=== PATIENT | female | born 1940 | race Caucasian/White ===

== ENCOUNTER → 2017-09-24 | Outpatient (CLI) | payer MEDICARE, OTHER ==
--- NOTE | 2017-09-24 15:06 | Diagnostic Imaging Report ---
INDICATION: Right knee swelling for 3-4 weeks. TIME OF EXAMINATION: 2:56 PM. FINDINGS: Three views of the right knee demonstrate tricompartmental degenerative change, greatest involving the patellofemoral compartment with significant joint space narrowing and marginal spurring. Milder medial and lateral degenerative changes are seen. There is spurring of the tibial spines. No fracture, dislocation, or effusion is seen. IMPRESSION: Degenerative changes. No acute bony abnormality is detected. Dictated by: Dictated on workstation # [id number]
== END ==
LOC: RAD 14:25
DX: M17.11 Unilateral primary osteoarthritis, right knee (principal)
CPT/HCPCS: 73562

== ENCOUNTER → 2017-09-28 | Outpatient (CLI) | payer MEDICARE, OTHER ==
--- NOTE | 2017-09-28 11:32 | Diagnostic Imaging Report ---
PROCEDURE: MRI right joint lower extremity without contrast. INDICATION: History of an old right knee injury with knee pain. 3-4 week history of right knee swelling. TECHNIQUE: Multiplanar and multisequence noncontrast MR imaging was performed of the right knee. COMPARISON: Radiographs of 09/24/2017. FINDINGS: The anterior cruciate ligament is changed from prior MRI study and appears markedly distorted. While there may be a few intact fibers, it appears to be generally torn. Posterior cruciate ligament appears to be intact. Rather significant joint space narrowing of both the medial and lateral compartment. There are significant areas of irregular thinning and distortion of the articular cartilage. Small areas of subcortical cystic formation are noted most pronounced involving the lateral tibial plateau. Altered appearance about the menisci compatible with myxoid degenerative changes. There is what appears to be more focal area of blunting and truncation about the posterior horn lateral meniscus with slightly complex tear. Signal abnormality also extends to the inferior surface. The medial meniscus also demonstrates distortion with abnormal tear of the posterior horn and body as well as some truncation of the posterior horn compatible with a complex meniscal tear. Patellofemoral compartment is significantly narrowed. There is asymmetric, rather prominent irregular areas of bony protuberance of the distal anterior femur accentuating areas of narrowing. Significant spur formation superior and inferior pole of patella. Moderately advanced chondromalacia of the patella present. The quadriceps and patellar tendon intact. Medial and lateral collateral ligament complex is intact. There is presence of a joint effusion. IMPRESSION: 1. Findings compatible with likely complete or nearly complete tear of the anterior cruciate ligament, changed from prior MRI. 2. Advanced multicompartment degenerative changes involving both knees. This includes joint space narrowing and thinning and distortion of the articular cartilage. Subcortical cystic formation. Prominent irregular areas of osteophyte formation accentuate narrowing particularly at the patellofemoral compartment. 3. 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 Additionally, there appears to be somewhat complex tears involving the posterior horn and body of both the medial, and to a lesser degree, lateral menisci. Dictated by: Dictated on workstation # [id number]
== END ==
LOC: RAD 09:25
DX: M17.0 Bilateral primary osteoarthritis of knee (principal); Z87.828 Personal history of other (healed) physical injury and trauma
CPT/HCPCS: 73721

== ENCOUNTER 2018-08-24 11:45 | Outpatient (CLI) | payer MEDICARE, OTHER ==
[~2018-08-24] VITALS: Ht 170.2 cm; Wt 70.3 kg
[2018-08-24] MEDS ORDERED: ESTR1TAB24 PO (11:56)
[2018-08-24] MEDS ORDERED: ICOS1CAP PO (11:56)
[2018-08-24] MEDS ORDERED: LISI10TA2 PO (11:56)
== END 2018-08-24 11:57 | disposition home or self-care (01) ==
LOC: PREOP 11:45
PROVIDERS: ATTEND Surgery
DX: Z01.818 Encounter for other preprocedural examination (principal)

== ENCOUNTER 2018-08-29 07:51 | Day surgery (SDC) | payer MEDICARE, OTHER ==
[~2018-08-29] VITALS: Ht 170.2 cm; Wt 70.3 kg
[~2018-08-29 07:51] MED LIST: ESTR1TAB24 PO; ICOS1CAP PO; LISI10TA2 PO
[2018-08-29 07:55] VITALS: BP 166/76
[2018-08-29] MEDS ORDERED: fentaNYL INJECTION 100 MCG/2 ML AMP IVP ONE ×2 (08:00→08:45)
[2018-08-29] MEDS ORDERED: LIDOCAINE JELLY 2% 6 ML SYRINGE MM PRN ×2 (08:00→08:45)
[2018-08-29] MEDS ORDERED: MIDAZOLAM 2 MG/2 ML (VERSED) VIAL IVP ONE ×2 (08:00→08:45)
[2018-08-29] MEDS ORDERED: NS IV 500 ML 500 ML IV PRN ×2 (08:00→08:41)
[2018-08-29] MEDS ORDERED: NS IV 500 ML 500 ML ONE (08:04)
[2018-08-29] MEDS ORDERED: MIDAZOLAM 2 MG/2 ML (VERSED) VIAL ONE ×3 (09:23)
[2018-08-29] MEDS ORDERED: fentaNYL INJECTION 100 MCG/2 ML AMP ONE ×2 (09:23→09:34)
--- NOTE | 2018-08-29 09:25 | Conscious Sedation/ASA ---
Conscious Sedation Pre-Proced Time 09:25 ASA Score 2 For ASA 3 and 4: Consider anesthesia and medical clearance. Also, for patients with a history of failed moderate sedation consider anesthesia. Airway Lungs Heart ASA score ASA 1: a normal healthy patient ASA 2: a patient with a mild systemic disease (mid diabetes, controlled hypertension, obesity ASA 3: a patient with a severe systemic disease that limits activity (angina , COPD, prior Myocardial infarction) ASA 4: a patient with an incapacitating disease that is a constant threat to life (CHF, renal failure) ASA 5: a moribund patient not expected to survive 24 hrs. (ruptured aneurysm) ASA 6: a declared brain- patient whose organs are being harvested. For emergent operations, add the letter E after the classification Mallampati Classification Grade 2 Sedation Plan Discussed options with patient/fam The patient is an appropriate candidate to undergo the planned procedure, sedation, and anesthesia. The patient immediately re-assessed prior to indication. CASSIE CEDILLO MD Aug 29, 2018 09:25
--- NOTE | 2018-08-29 09:25 | History & Physicial ---
History of Present Illness History of Present Illness Reason for visit/HPI to undergo screening colonoscopy. She reports a family history of colon cancer in her mother. Date of Admission 08/29/18 Date Seen by a Provider: Aug 29, 2018 Time Seen by a Provider: 09:24 I consulted on this patient on 08/29/18 09:23 Attending Physician Cassie Schulte MD Admitting Physician Moisés Luis MD Consult Allergies and Home Medications Allergies Coded Allergies: No Known Drug Allergies (Unverified , 08/24/18) Home Medications Estradiol 1 Mg Tablet, 1 MG PO DAILY, (Reported) Icosapent Ethyl 1 Gm Capsule, 2 GM PO BID, (Reported) take 2 (1GM) tabs Lisinopril 10 Mg Tablet, 10 MG PO DAILY, (Reported) Patient Home Medication List Home Medication List Reviewed: Yes Past Yevpqpj-Qjnrky-Eqxxxn Hx Patient Social History Marrital Status: Employed/Student: self-employed Alcohol Use: Denies Use Recreational Drug Use: No Smoking Status: Former Smoker Former Smoker, Quit: Aug 25, 1975 2nd Hand Smoke Exposure: No Recent Foreign Travel: No Contact w/other who traveled: No Recent Hopitalizations: No Recent Infectious Disease Expo: No Immunizations Up To Date Tetanus Booster (TDap): Unknown Pediatric: No Date of Pneumonia Vaccine: Mar 14, 2018 Date of Influenza Vaccine: Mar 14, 2018 Seasonal Allergies Seasonal Allergies: No Surgeries Yes Hysterectomy Respiratory No Cardiovascular Yes Hypertension Neurological No Genitourinary No Gastrointestinal No Musculoskeletal Yes Arthritis Endocrine History of Endocrine Disorders: No HEENT History of HEENT Disorders: Yes HEENT Disorders: Cataract Cancer Yes Skin Type of Treatment: Surgical Intervention Psychosocial History of Psychiatric Problem: No Integumentary History of Skin or Integumenta: No Blood Transfusions History of Blood Disorders: No Family Medical History Family Hx: Colon cancer Polyps in the colon Review of Systems Constitutional: no symptoms reported EENTM: no symptoms reported Respiratory: no symptoms reported Cardiovascular: no symptoms reported Gastrointestinal: no symptoms reported Genitourinary: no symptoms reported Skin: no symptoms reported Psychiatric/Neurological: No Symptoms Reported Physical Exam Vital Signs Vital Signs - First Documented 08/29/18 07:55 Temp 98.4 Pulse 65 Resp 18 B/P (MAP) 166/76 (106) Pulse Ox 98 O2 Delivery Room Air Capillary Refill : Height, Weight, BMI Height: 5'7.00" Weight: 155lbs. 0.0oz. [id number]; 24.3 BMI Method: General Appearance: No Apparent Distress Respiratory: Lungs Clear Cardiovascular: Regular Rate, Rhythm Gastrointestinal: Non Tender, Soft Rectal: Deferred Neurologic/Psychiatric: Alert, Oriented x3 Skin: Warm/Dry Assessment/Plan Assessment and Plan lady with a family history of colon cancer. For screening colonoscopy. Admission Diagnosis Admission Status: Other (Outpt Proc) CASSIE SCHULTE MD Aug 29, 2018 09:25
--- NOTE | 2018-08-29 09:47 | Endo Procedure Record ---
Endo Procedure Report Date of Procedure Last Colonoscopy: Yes (12 YEARS AGO) Aug 29, 2018 Surgeon (s) CASSIE CEDILLO MD Post Procedure/Op Diagnosis very few sigmoid diverticulae Procedure Performed colonoscopy to cecum Description of Procedure Anesthesia Type: Conscious Sedation Specimen(s) collected/removed none Description of the Procedure Indication for the procedure: This lady, with a family history of colon cancer involving her mother, came in for screening colonoscopy. She reported a normal colonoscopy about 12 years ago. Informed consent was obtained after reviewing the procedure in detail. Description of the procedure: She was placed in left lateral decubitus position and her vital signs were monitored. Conscious sedation was achieved using Versed and fentanyl. Examination of the perianal area revealed small external hemorrhoid and an associated skin tag. Digital examination was otherwise unremarkable. The colonoscope was then introduced in the rectum and advanced all the way up to the cecum. It was then withdrawn slowly and the mucosa examined in a systematic fashion. Findings: Sigmoid diverticulosis. She tolerated the procedure well and was taken back to the nursing area in a stable condition. Impression: Screening colonoscopy. Positive family history. No polyps. Recommend repeating in 5 years. Copy Copies To 1: REGI PALACIOS MD, XAVIER M MD Aug 29, 2018 09:47
--- NOTE | 2018-08-29 09:50 | Discharge Inst-Simple/Standard ---
Discharge Inst-Standard Discharge Medications New, Converted or Re-Newed RX: Other Patient Instructions/Follow Up Plan of Care/Instructions/FU: repeat colonoscopy in 5 years Activity as Tolerated: Yes Discharge Diet: No Restrictions CASSIE CEDILLO MD Aug 29, 2018 09:50
[2018-08-29 10:05] VITALS: BP 145/69
[2018-08-29 10:35] VITALS: BP 124/62
== END 2018-08-29 10:55 | disposition home or self-care (01) ==
LOC: ENDO 07:51
PROVIDERS: ATTEND Surgery
DX: Z12.11 Encounter for screening for malignant neoplasm of colon (principal); K57.30 Diverticulosis of large intestine without perforation or abscess without bleeding; Z80.0 Family history of malignant neoplasm of digestive organs; K64.4 Residual hemorrhoidal skin tags; I10 Essential (primary) hypertension; M19.91 Primary osteoarthritis, unspecified site; Z87.891 Personal history of nicotine dependence; Z85.828 Personal history of other malignant neoplasm of skin; Z79.899 Other long term (current) drug therapy

== ENCOUNTER 2021-02-11 19:19 | Emergency (ER) | payer MEDICARE, OTHER ==
[~2021-02-11] VITALS: Ht 170 cm; Wt 68.9 kg
[~2021-02-11 19:19] MED LIST changes: -LISI10TA2 PO; +LISI10TA25 PO
[2021-02-11 19:32] VITALS: BP 179/74
--- NOTE | 2021-02-11 20:08 | ED Lower Extremity ---
General Chief Complaint: Lower Extremity Stated Complaint: FEVER/CHILLS/R KNEE PAIN Nursing Triage Note: PT PRESENTS TO THE ED C/O WORSENING R KNEE PAIN WITH INCREASINGLY LIMITED EXTENSION. PT REPORTS RUNNING A MILD FEVER AT HOME OF 99.1, PT USED ADVIL AT HOME. IS AFEBRILE UPON PRESENTATION TO THE ED, NEGATIVE FOR COVID SCREEINING. KNEE IS HOT TO THE TOUCHAND SWOLLEN, NO REDNESS Source: patient Exam Limitations: no limitations (CAMRYN WALDROP APRN) History of Present Illness Date Seen by Provider: Feb 11, 2021 Time Seen by Provider: 19:49 Initial Comments This is a well-appearing 80-year-old female who presents to the ER with complaints of right knee pain and decreased range of motion. States that approximately 18 months ago she had a fall and was told she had a ligament tear. She was scheduled to have surgery with Dr. Bettencourt however with Covid her surgery was delayed and she has yet to reschedule. States that her knee is constantly swollen, however tonight she is unable to bend her knee. 2 days ago she received a steroid injection at Dr. Palacios's office. States that the steroid injections has been helping with the pain until she is able to reschedule her appointment. States that she had a 99.1 temperature at home. No chills, nausea, vomiting, abdominal pain. No erythema to the right knee. (CAMRYN WALDROP MIXED [employer]IM[employer] VETERINARIAN) Allergies and Home Medications Allergies Coded Allergies: No Known Drug Allergies (Unverified , 08/24/18) Home Medications Estradiol 1 Mg Tablet, 1 MG PO DAILY, (Reported) Icosapent Ethyl 1 Gm Capsule, 2 GM PO BID, (Reported) take 2 (1GM) tabs Lisinopril 10 Mg Tablet, 10 MG PO DAILY, (Reported) Patient Home Medication List Home Medication List Reviewed: Yes (CAMRYN WALDROP APRN) Review of Systems Constitutional: see HPI EENTM: no symptoms reported Respiratory: no symptoms reported Cardiovascular: no symptoms reported Gastrointestinal: no symptoms reported Genitourinary: no symptoms reported Musculoskeletal: see HPI Skin: no symptoms reported Psychiatric/Neurological: No Symptoms Reported (CAMRYN WALDROP APRN) Past Oofutlh-Gnisiz-Afrnyd Hx Patient Social History Tobacco Use?: No Substance use?: No (CAMRYN WALDROP APRN) Immunizations Up To Date Tetanus Booster (TDap): Unknown PED Vaccines UTD: No Influenza Vaccine Up-to-Date: Yes; Up-to-Date (CAMRYN WALDROP APRN) Seasonal Allergies Seasonal Allergies: No (CAMRYN WALDROP APRN) Past Medical History Surgery/Hospitalization HX: HTN HX. MRI OF R KNEE REVEALED TORN LIGAMENTS IN 2019-HAS NOT HAD SURG OF 02/11/21 Surgeries: Yes Hysterectomy Respiratory: No Cardiac: Yes Hypertension Neurological: No Genitourinary: No Gastrointestinal: No Musculoskeletal: Yes Arthritis Endocrine: No HEENT: Yes Cataract Cancer: Yes Skin What Type of Treatment Did You: Surgical Intervention Psychosocial: No Integumentary: No Blood Disorders: No (CAMRYN WALDROP APRN) Family Medical History Colon cancer Polyps in the colon Physical Exam Vital Signs Vital Signs - First Documented 02/11/21 19:32 Temp 36.9 Pulse 72 Resp 18 B/P (MAP) 179/74 (109) Pulse Ox 98 O2 Delivery Room Air (KYARA WELLS MD) Vital Signs Capillary Refill : Less Than 3 Seconds (CAMRYN WALDROP APRN) Height, Weight, BMI Height: 5'7.00" Weight: 155lbs. 0.0oz. [id number]; 23.00 BMI Method: General Appearance: WD/WN, no apparent distress HEENT: PERRL/EOMI, normal ENT inspection Neck: full range of motion, normal inspection Cardiovascular: normal peripheral pulses, regular rate, rhythm, no edema, no gallop, systolic murmur Respiratory: lungs clear, normal breath sounds, no respiratory distress, no accessory muscle use Gastrointestinal: normal bowel sounds, non tender, soft Back: normal inspection, no vertebral tenderness Hips: bilateral hip non-tender, bilateral hip normal inspection, bilateral hip normal range of motion, bilateral hip no evidence of injury Legs: bilateral leg non-tender, bilateral leg normal inspection, bilateral leg normal range of motion, bilateral leg no evidence of injury Knees: left knee non-tender, left knee normal inspection, left knee normal range of motion; right knee joint effusion, right knee swelling, right knee other (Limited ROM with flexion. ) Ankles: bilateral ankle non-tender, bilateral ankle normal inspection, bilateral ankle normal range of motion, bilateral ankle no evidence of injury Neurologic/Tendon: normal sensation, normal motor functions, normal tendon functions Neurologic/Psychiatric: no motor/sensory deficits, alert, normal mood/affect, oriented x 3 Skin: normal color, warm/dry (CAMRYN WALDROP APRN) Progress/Results/Core Measures Results/Orders Lab Results Laboratory Tests Test 02/11/21 20:12 Range/Units White Blood Count 8.8 4.3-11.0 10^3/uL Red Blood Count 4.80 3.80-5.11 10^6/uL Hemoglobin 13.3 11.5-16.0 g/dL Hematocrit 42 35-52 % Mean Corpuscular Volume 88 80-99 fL Mean Corpuscular Hemoglobin 28 25-34 pg Mean Corpuscular Hemoglobin Concent 31 L 32-36 g/dL Red Cell Distribution Width 15.4 H 10.0-14.5 % Platelet Count 247 130-400 10^3/uL Mean Platelet Volume 10.8 9.0-12.2 fL Immature Granulocyte % (Auto) 0 % Neutrophils (%) (Auto) 75 42-75 % Lymphocytes (%) (Auto) 15 12-44 % Monocytes (%) (Auto) 8 0-12 % Eosinophils (%) (Auto) 2 0-10 % Basophils (%) (Auto) 1 0-10 % Neutrophils # (Auto) 6.6 1.8-7.8 10^3/uL Lymphocytes # (Auto) 1.3 1.0-4.0 10^3/uL Monocytes # (Auto) 0.7 0.0-1.0 10^3/uL Eosinophils # (Auto) 0.2 0.0-0.3 10^3/uL Basophils # (Auto) 0.0 0.0-0.1 10^3/uL Immature Granulocyte # (Auto) 0.0 0.0-0.1 10^3/uL Sodium Level 138 135-145 MMOL/L Potassium Level 4.7 3.6-5.0 MMOL/L Chloride Level 106 98-107 MMOL/L Carbon Dioxide Level 21 21-32 MMOL/L Anion Gap 11 5-14 MMOL/L Blood Urea Nitrogen 17 7-18 MG/DL Creatinine 1.26 0.60-1.30 MG/DL Estimat Glomerular Filtration Rate 41 BUN/Creatinine Ratio 13 Glucose Level 112 H 70-105 MG/DL Calcium Level 9.6 8.5-10.1 MG/DL Corrected Calcium 9.9 8.5-10.1 MG/DL Total Bilirubin 0.6 0.1-1.0 MG/DL Aspartate Amino Transf (AST/SGOT) 27 5-34 U/L Alanine Aminotransferase (ALT/SGPT) 27 0-55 U/L Alkaline Phosphatase 74 40-136 U/L C-Reactive Protein High Sensitivity 6.34 H 0.00-0.50 MG/DL Total Protein 7.1 6.4-8.2 GM/DL Albumin 3.6 3.2-4.5 GM/DL (KYARA WELLS MD) Vital Signs/I&O 02/11/21 19:32 Temp 36.9 Pulse 72 Resp 18 B/P (MAP) 179/74 (109) Pulse Ox 98 O2 Delivery Room Air (KYARA WELLS MD) Blood Pressure Mean: 109 Progress Progress Note : Progress Note Patient examined and in no acute distress. States that she currently has no pain at rest. Chief concern is limited flexion which started occurring this morning. Will obtain x-rays, basic labs, ESR, CRP. Labs reviewed. No elevation in WBC. X-ray neg. Discussed with Dr. Crooks about draining fluid from knee. He reviewed risks/benefits. Patient declined. Reviewed discharge POC and she is agreeable with plan. (CAMRYN WALDROP APRN) Progress Note : Time: 20:53 Progress Note I have examined the Desiree's knee along with camryn Waldrop. She does have an effusion of the right knee. The knee is not erythematous, warm, or diffusely tender to suggest infection. We discussed the risks and benefits of attempting arthrocentesis therapeutically. After discussing risks and benefits, patient elects to attempt more conservative measures and follow-up in the outpatient setting. (KYARA WELLS MD) Diagnostic Imaging Diagonstic Imaging: Xray Plain Films/CT/US/NM/MRI: other (knee) Comments [facility] [place], [place] NAME: DESIREE GEIGER [facility] REC#: [id number] PT STATUS: REG ER : 1940 PHYSICIAN: CAMRYN WALDROP APRN ADMIT DATE: 02/11/21/ER Draft Date of Exam:02/11/21 KNEE, RIGHT, 3 VIEWS INDICATION: Knee pain and swelling COMPARISON: 09/24/2017 TECHNIQUE: 3 radiographs of the right knee dated 02/11/2021 FINDINGS: No acute fracture or dislocation. No destructive osseous process. Mild medial and lateral joint space narrowing. Mild tricompartmental osteophytosis, greatest involving the patellofemoral joint. No significant joint effusion. No suspicious radiopaque foreign body. IMPRESSION: No acute osseous abnormality with mild to moderate degenerative changes present. Dictated on workstation # [id number] Dict: 02/11/212043 Trans: 02/11/212046 [facility] [phone] Interpreted by: MUSA MAK MD Electronically signed by: Reviewed: Reviewed by Me (CAMRYN WALDROP APRN) Departure Impression Primary Impression: Knee pain Disposition: HOME, SELF-CARE Condition: Improved Departure-Patient Inst. Decision time for Depature: 20:57 (CAMRYN WALDROP APRN) Decision time for Depature: 20:54 (KYARA WELLS MD) Referrals: REGI PALACIOS MD (PCP/Family) Primary Care Physician Patient Instructions: Knee Pain ED Add. Discharge Instructions: 1. Follow up with Dr. Bettencourt for persistent symptoms. Please call office to schedule follow up appointment. 2. Use ice 20 minutes at a time as needed for pain/swelling. 3. May use romeo wrap for swelling and pain. 4. May take Tylenol or Ibuprofen as needed for pain per package. Do not take more than directed. 5. Return to ER for any new, concerning, or worsening symptoms. All discharge instructions reviewed with patient and/or family. Voiced understanding. Copy Copies To 1: ARLINE HOFFMAN MD, STORMY D APRN Feb 11, 2021 20:08 KYARA WELLS MD Feb 11, 2021 20:54
[2021-02-11 20:28] LABS: BASOPHILS % (AUTO) 1 % (0-10); EOSINOPHILS # (AUTO) 0.2 10^3/uL (0.0-0.3); EOSINOPHILS % (AUTO) 2 % (0-10); HEMATOCRIT 42 % (35-52); HEMOGLOBIN 13.3 g/dL (11.5-16.0); LYMPHOCYTES # (AUTO) 1.3 10^3/uL (1.0-4.0); LYMPHOCYTES % (AUTO) 15 % (12-44); MEAN CORPUSCULAR HEMOGLOBIN 28 pg (25-34); MEAN CORPUSCULAR HGB CONC 31 g/dL (32-36); MEAN CORPUSCULAR VOLUME 88 fL (80-99); MEAN PLATELET VOLUME 10.8 fL (9.0-12.2); MONOCYTES # (AUTO) 0.7 10^3/uL (0.0-1.0); MONOCYTES % (AUTO) 8 % (0-12); NEUTROPHILS # (AUTO) 6.6 10^3/uL (1.8-7.8); NEUTROPHILS % (AUTO) 75 % (42-75); PLATELET COUNT 247 10^3/uL (130-400); WHITE BLOOD COUNT 8.8 10^3/uL (4.3-11.0)
[2021-02-11 20:40] LABS: ALBUMIN 3.6 GM/DL (3.2-4.5); BILIRUBIN,TOTAL 0.6 MG/DL (0.1-1.0); CALCIUM 9.6 MG/DL (8.5-10.1); CREATININE SERUM 1.26 MG/DL (0.60-1.30); POTASSIUM 4.7 MMOL/L (3.6-5.0); TOTAL PROTEIN 7.1 GM/DL (6.4-8.2)
--- NOTE | 2021-02-11 20:47 | Diagnostic Imaging Report ---
INDICATION: Knee pain and swelling COMPARISON: 09/24/2017 TECHNIQUE: 3 radiographs of the right knee dated 02/11/2021 FINDINGS: No acute fracture or dislocation. No destructive osseous process. Mild medial and lateral joint space narrowing. Mild tricompartmental osteophytosis, greatest involving the patellofemoral joint. No significant joint effusion. No suspicious radiopaque foreign body. IMPRESSION: No acute osseous abnormality with mild to moderate degenerative changes present. Dictated by: Dictated on workstation # [id number]
[2021-02-11 21:02] LABS: ERYTHROCYTE SEDIMENTATION RATE 17 MM/HR (0-30)
== END 2021-02-11 21:03 | disposition home or self-care (01) ==
LOC: EDUNIT# 19:19 → ER 19:21
DX: M25.561 Pain in right knee (principal); I10 Essential (primary) hypertension; Z79.899 Other long term (current) drug therapy
CPT/HCPCS: 36415; 73562; 80053; 85025; 85652; 86141

== ENCOUNTER → 2021-02-25 | Outpatient (CLI) | payer MEDICARE, OTHER ==
--- NOTE | 2021-02-25 11:30 | Diagnostic Imaging Report ---
INDICATION: 80-year-old postmenopausal female. COMPARISON: None. FINDINGS: AP Spine L1-L4: [BMD (g/cm2): 1.111] [T-Score: -0.7] [Z-Score: 1.0] [BMD Previous: NA] [BMD % Change: NA] LT Hip Neck: [BMD (g/cm2): 0.970] [T-Score: -0.5] [Z-Score: 1.6] LT Hip Total: [BMD (g/cm2):1.027] [T-Score:0.2] [Z-Score: 2.1] [BMD Previous: NA] [BMD % Change: NA] RT Hip Neck: [BMD (g/cm2):0.944] [T-Score:-0.7] [Z-Score:1.4] RT Hip Total: [BMD (g/cm2):1.025] [T-score:0.1] [Z-Score:2.0] [BMD Previous:NA] [BMD % Change:NA] World Health Organization criteria for BMD interpretation classify patients as Normal (T-score at or above -1.0), Osteopenic (T-score between -1.0 and -2.5) or Osteoporotic (T-score at or below -2.5). LIMITATIONS AND MODIFICATION: None. IMPRESSION: 1. Normal bone mineral density. 2. Baseline examination. 3. See below National Osteoporosis Foundation guidelines on when to potentially initiate pharmacologic therapy. Based on the National Osteoporosis Foundation Guidelines, pharmacologic treatment should be initiated in any of the following, unless clinical conditions suggest otherwise: * Any patient with prior fragility fracture of the hip or vertebrae. A spine fracture indicates 5X risk for subsequent spine fracture and 2X risk for subsequent hip fracture. * Osteoporosis (T-score <-2.5). * Postmenopausal women and men age 50 and older with low bone mass/osteopenia (T-score between -1.0 and -2.5) by DXA and 10-year major osteoporotic fracture greater than 20% or a 10-year probability of hip fracture greater than 3%. These fracture risks are supplied above in the FRAX score, if applicable. * Clinician judgement and/or patient preferences may indicate treatment for people with 10-year fracture probabilities above or below these levels. Dictated by: Dictated on workstation # [id number]
--- NOTE | 2021-02-25 12:30 | Diagnostic Imaging Report ---
INDICATION: Routine screening. COMPARISON: No prior mammograms are available for comparison. TECHNIQUE: 2D and 3D bilateral screening mammography was performed with CAD. FINDINGS: Scattered fibroglandular densities are identified bilaterally. No mass or malignant-appearing microcalcifications are seen. The axillae are unremarkable. IMPRESSION: No mammographic features suspicious for malignancy are identified. ACR BI-RADS Category 1: Negative. Result letter will be mailed to the patient. Note: At least 10% of breast cancer is not imaged by mammography. Dictated by: Dictated on workstation # [id number]
== END ==
LOC: RAD 10:00
PROVIDERS: ATTEND Family Medicine
DX: Z12.31 Encounter for screening mammogram for malignant neoplasm of breast (principal); Z13.820 Encounter for screening for osteoporosis; Z78.0 Asymptomatic menopausal state; R01.1 Cardiac murmur, unspecified; I08.3 Combined rheumatic disorders of mitral, aortic and tricuspid valves
CPT/HCPCS: 77063; 77067; 77080; 93306

== ENCOUNTER → 2021-08-27 | Outpatient (CLI) | payer MEDICARE, OTHER ==
--- NOTE | 2021-08-27 18:31 | Diagnostic Imaging Report ---
EXAMINATION: Right lower extremity MRI, 08/27/2021. TECHNIQUE: Multiplanar, multisequence [id number]-syyydaua MRI of the right lower extremity was accomplished. INDICATION: Osteoarthritis. Knee pain and swelling. FINDINGS: The extensor mechanism is intact. The PCL is intact. The ACL is somewhat ill defined perhaps due to a prior partial tear. No discontinuity or acute abnormality is appreciated. The anterior horn and body of the lateral meniscus are diffusely heterogeneous consistent with a multidirectional degenerative-type tear. Horizontal signal extends into the posterior horn. The medial meniscus is somewhat poorly evaluated perhaps due to technique. There appears to be myxoid degeneration within the posterior horn with a discrete tear not appreciated. There is severe loss of cartilage in the lateral joint compartment with subchondral cystic change and edema as well as spurring within the adjacent tibial plateau and femoral condyle. Moderate heterogeneity of the cartilage in the medial joint compartment is noted. There is severe loss of cartilage over the patella. The MCL is intact. The lateral collateral ligamentous complex is intact. There is a small joint effusion with hypointensities in the fluid, likely loose bodies. A small Pineda's cyst is also noted. IMPRESSION: 1. Multidirectional tear of the lateral meniscus, most marked in the anterior horn. 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 2. Tricompartmental degenerative disease with a joint effusion containing tiny loose bodies. Other findings as above. Dictated by: Dictated on workstation # [id number]
== END ==
LOC: RAD 14:00
PROVIDERS: ATTEND Nurse Practitioner Family
DX: S83.281A Other tear of lateral meniscus, current injury, right knee, initial encounter (principal); M17.11 Unilateral primary osteoarthritis, right knee; X58.XXXA Exposure to other specified factors, initial encounter
CPT/HCPCS: 73721

== ENCOUNTER 2022-04-04 01:34 | Emergency (ER) | payer MEDICARE, OTHER ==
[2022-04-04] MEDS ORDERED: LIDOCAINE 2% VISCOUS 15 ML UDC PO ONE (01:45)
[2022-04-04] MEDS ORDERED: ANTACID SUSP 30 ML UDC (MYLANTA) PO ONE (01:45)
[2022-04-04] MEDS ORDERED: SUCRALFATE 1 GM (CARAFATE) TAB PO ONE (01:45)
--- NOTE | 2022-04-04 01:49 | ED Abdominal Pain ---
General Chief Complaint: Cardiac/General Problems Stated Complaint: RAPID HR - ABD PAIN Source of Information: Patient Exam Limitations: No Limitations History of Present Illness Date Seen by Provider: Apr 04, 2022 Time Seen by Provider: 01:35 Initial Comments 81-year-old female presents to the emergency department today initially for what she thought were cardiac problems. She states her heart rate has been elevated. It is in the 70s80s but she feels it is elevated for her. She has had epigastric abdominal pain described as burning sensation with radiation to the bilateral upper abdomen since about 7 PM tonight. It has been unrelenting. She has been on oxycodone longstanding for some chronic knee pain. She been trying to wean herself off and only took 1 yesterday. She thought her symptoms might be related to withdrawal so she took 2 pills prior to arrival. Symptoms have persisted. She has had similar pains in the past. No obvious aggravating or alleviating factors. Does not seem to be specifically irritated by food intake. No changes in bowel or bladder habits. No vaginal symptoms. No nausea vomiting or fevers Allergies and Home Medications Allergies Coded Allergies: No Known Drug Allergies (Unverified , 08/24/18) Patient Home Medication List Home Medication List Reviewed: Yes Estradiol (Estradiol Tablet) 1 Mg Tablet, 1 MG PO DAILY, (Reported) Entered as Reported by: GABRIELA LUCIANO on 08/24/18 1156 Icosapent Ethyl (Vascepa) 1 Gm Capsule, 2 GM PO BID, (Reported) Entered as Reported by: GABRIELA LUCIANO on 08/24/18 1156 Lisinopril (Lisinopril) 10 Mg Tablet, 10 MG PO DAILY, (Reported) Entered as Reported by: GABRIELA LUCIANO on 08/24/18 1156 Review of Systems Review of Systems Constitutional: no symptoms reported EENTM: No Symptoms Reported Respiratory: No Symptoms Reported Cardiovascular: Irregular Heart Rate Gastrointestinal: Abdominal Pain Genitourinary: No Symptoms Reported Musculoskeletal: no symptoms reported Skin: no symptoms reported Psychiatric/Neurological: No Symptoms Reported Endocrine: No Symptoms Reported Hematologic/Lymphatic: No Symptoms Reported Past Cguvzpf-Dwhork-Shimmj Hx Patient Social History Tobacco Use?: No Use of E-Cig and/or Vaping dev: No Substance use?: No Immunizations Up To Date Tetanus Booster (TDap): Unknown PED Vaccines UTD: No Seasonal Allergies Seasonal Allergies: No Past Medical History Surgery/Hospitalization HX: HTN HX. MRI OF R KNEE REVEALED TORN LIGAMENTS IN 2019-HAS NOT HAD SURG OF 02/11/21 Surgeries: Yes Hysterectomy Respiratory: No Cardiac: Yes Hypertension Neurological: No Genitourinary: No Gastrointestinal: No Musculoskeletal: Yes Arthritis Endocrine: No HEENT: Yes Cataract Cancer: Yes Skin What Type of Treatment Did You: Surgical Intervention Psychosocial: No Integumentary: No Blood Disorders: No Family Medical History Reviewed Nursing Family Hx Colon cancer Polyps in the colon No Pertinent Family Hx Physical Exam Vital Signs Vital Signs - First Documented 04/04/22 01:38 Temp 37.1 Pulse 77 Resp 18 B/P (MAP) 200/91 (127) Pulse Ox 98 O2 Delivery Room Air Capillary Refill : Height/Weight/BMI Height: 5'7.00" Weight: 155lbs. 0.0oz. 70.444960qs; 23.00 BMI Method: General Appearance: WD/WN, no apparent distress HEENT: normal ENT inspection, TMs normal, pharynx normal Neck: non-tender, full range of motion, supple, normal inspection Respiratory: chest non-tender, lungs clear, normal breath sounds, no respiratory distress, no accessory muscle use Cardiovascular: regular rate, rhythm, no edema, no gallop, no JVD, no murmur, other Gastrointestinal: normal bowel sounds (Hypertension), non tender, soft, no organomegaly, no pulsatile mass Back: normal inspection, no CVA tenderness, no vertebral tenderness Neurologic/Psychiatric: alert, normal mood/affect, oriented x 3 Skin: normal color, warm/dry Progress/Results/Core Measures Results/Orders Lab Results Laboratory Tests Test 04/04/22 01:57 Range/Units White Blood Count 8.9 4.3-11.0 10^3/uL Red Blood Count 4.52 3.80-5.11 10^6/uL Hemoglobin 12.1 11.5-16.0 g/dL Hematocrit 39 35-52 % Mean Corpuscular Volume 86 80-99 fL Mean Corpuscular Hemoglobin 27 25-34 pg Mean Corpuscular Hemoglobin Concent 31 L 32-36 g/dL Red Cell Distribution Width 14.9 H 10.0-14.5 % Platelet Count 374 130-400 10^3/uL Mean Platelet Volume 9.9 9.0-12.2 fL Immature Granulocyte % (Auto) 1 % Neutrophils (%) (Auto) 70 42-75 % Lymphocytes (%) (Auto) 19 12-44 % Monocytes (%) (Auto) 6 0-12 % Eosinophils (%) (Auto) 4 0-10 % Basophils (%) (Auto) 1 0-10 % Neutrophils # (Auto) 6.2 1.8-7.8 10^3/uL Lymphocytes # (Auto) 1.7 1.0-4.0 10^3/uL Monocytes # (Auto) 0.6 0.0-1.0 10^3/uL Eosinophils # (Auto) 0.3 0.0-0.3 10^3/uL Basophils # (Auto) 0.1 0.0-0.1 10^3/uL Immature Granulocyte # (Auto) 0.1 0.0-0.1 10^3/uL Sodium Level 138 135-145 MMOL/L Potassium Level 4.5 3.6-5.0 MMOL/L Chloride Level 107 98-107 MMOL/L Carbon Dioxide Level 20 L 21-32 MMOL/L Anion Gap 11 5-14 MMOL/L Blood Urea Nitrogen 24 H 7-18 MG/DL Creatinine 1.23 0.60-1.30 MG/DL Estimat Glomerular Filtration Rate 44 BUN/Creatinine Ratio 20 Glucose Level 128 H 70-105 MG/DL Calcium Level 10.0 8.5-10.1 MG/DL Corrected Calcium 10.2 H 8.5-10.1 MG/DL Total Bilirubin 0.6 0.1-1.0 MG/DL Aspartate Amino Transf (AST/SGOT) 15 5-34 U/L Alanine Aminotransferase (ALT/SGPT) 15 0-55 U/L Alkaline Phosphatase 112 40-136 U/L Troponin I < 0.028 <0.028 NG/ML Total Protein 7.9 6.4-8.2 GM/DL Albumin 3.7 3.2-4.5 GM/DL Lipase 34 8-78 U/L My Orders Orders - GISSELLE LYON DO Ekg Tracing (04/04/22 01:35) Comprehensive Metabolic Panel (04/04/22 01:44) Lipase (04/04/22 01:44) Troponin I [place] (04/04/22 01:44) Ekg Tracing (04/04/22 01:44) Chest 1 View, Ap/Pa Only (04/04/22 01:44) Cbc With Automated Diff (04/04/22 01:44) Antacid Suspension (Mylanta Suspension (04/04/22 01:45) Sucralfate Tablet (Carafate Tablet) (04/04/22 01:45) Lidocaine 2% Viscous 15 Ml (Xylocaine Vi (04/04/22 01:45) Medications Given in ED Current Medications Medications Dose Ordered Sig/Javid Route Start Time Stop Time Status Last Admin Dose Admin Al Hydrox/Mg Hydrox/Simethicone 30 ml ONCE ONCE PO 04/04/22 01:45 04/04/22 01:48 DC 04/04/22 01:55 30 ML Lidocaine HCl 5 ml ONCE ONCE PO 04/04/22 01:45 04/04/22 01:48 DC 04/04/22 01:55 5 ML Sucralfate 1 gm ONCE ONCE PO 04/04/22 01:45 04/04/22 01:48 DC 04/04/22 01:55 1 GM Vital Signs/I&O 04/04/22 01:38 Temp 37.1 Pulse 77 Resp 18 B/P (MAP) 200/91 (127) Pulse Ox 98 O2 Delivery Room Air Comment Sinus rhythm at 77 bpm. Normal intervals. Left axis deviation. T wave inversions in 1 and aVL. No ectopy. No STEMI. Departure Communication (Admissions) Patient is hemodynamically stable. I am actually unable to reproduce pain on exam. After negative labs and work-up, I was speaking with her about possible causes of her pain. I mention gastritis, increased acid. She states she did recently stop pantoprazole. Advise she restart this when she gets home. She has a benign exam, negative work-up including cardiac work-up, no evidence of pancreatitis. No indication this is from her gallbladder, specifically not acute cholecystitis. Chest x-ray shows no evidence for pneumonia, pneumothorax. Mediastinum is normal, not wide with no indication of dissection. I do believe gastritis is most likely at this point. He is discharged home in stable condition with strict return precautions and close primary care follow-up. Impression Primary Impression: Epigastric pain Disposition: HOME, SELF-CARE Condition: Stable Departure-Patient Inst. Referrals: ARLINE HOFFMAN MD (PCP/Family) Primary Care Physician Patient Instructions: Gastritis (DC) Add. Discharge Instructions: You are labs, vital signs and exam are reassuring. There is no indication for emergent medical condition at this time. This may be related to recently stopping pantoprazole. I recommend you restart this when you get home. If your symptoms persist I recommend you follow-up with your doctor on Wednesday. If your symptoms change in any way concerning to you or if you have severe pain please return to the emergency department immediately. All discharge instructions reviewed with patient and/or family. Voiced understanding. GISSELLE LYON DO Apr 04, 2022 01:49
[2022-04-04 02:04] LABS: BASOPHILS # (AUTO) 0.1 10^3/uL (0.0-0.1); BASOPHILS % (AUTO) 1 % (0-10); EOSINOPHILS # (AUTO) 0.3 10^3/uL (0.0-0.3); EOSINOPHILS % (AUTO) 4 % (0-10); HEMATOCRIT 39 % (35-52); HEMOGLOBIN 12.1 g/dL (11.5-16.0); LYMPHOCYTES # (AUTO) 1.7 10^3/uL (1.0-4.0); LYMPHOCYTES % (AUTO) 19 % (12-44); MEAN CORPUSCULAR HEMOGLOBIN 27 pg (25-34); MEAN CORPUSCULAR HGB CONC 31 g/dL (32-36); MEAN CORPUSCULAR VOLUME 86 fL (80-99); MEAN PLATELET VOLUME 9.9 fL (9.0-12.2); MONOCYTES # (AUTO) 0.6 10^3/uL (0.0-1.0); MONOCYTES % (AUTO) 6 % (0-12); NEUTROPHILS # (AUTO) 6.2 10^3/uL (1.8-7.8); NEUTROPHILS % (AUTO) 70 % (42-75); PLATELET COUNT 374 10^3/uL (130-400); WHITE BLOOD COUNT 8.9 10^3/uL (4.3-11.0)
[2022-04-04 02:14] LABS: ALBUMIN 3.7 GM/DL (3.2-4.5); CHLORIDE 107 MMOL/L (98-107); POTASSIUM 4.5 MMOL/L (3.6-5.0); SODIUM 138 MMOL/L (135-145)
[2022-04-04 02:17] LABS: GLUCOSE 128 MG/DL (70-105); TOTAL PROTEIN 7.9 GM/DL (6.4-8.2)
[2022-04-04 02:18] LABS: BILIRUBIN,TOTAL 0.6 MG/DL (0.1-1.0); CARBON DIOXIDE 20 MMOL/L (21-32)
[2022-04-04 02:20] LABS: ALKALINE PHOSPHATASE 112 U/L (40-136); CREATININE SERUM 1.23 MG/DL (0.60-1.30); GFR ESTIMATED 44
[2022-04-04 02:21] LABS: BUN/CREATININE RATIO 20
[2022-04-04 02:23] LABS: ALANINE AMINOTRANSFERASE 15 U/L (0-55); LIPASE 34 U/L (8-78)
[2022-04-04 02:59] VITALS: BP 189/86
--- NOTE | 2022-04-04 07:08 | Diagnostic Imaging Report ---
EXAMINATION: Chest 1 view HISTORY: Chest pain. COMPARISON: None available. FINDINGS: The lung volumes are normal. No focal consolidation is seen. No large pleural effusion or pneumothorax is seen. The cardiomediastinal silhouette is normal in size and contour. There is calcified aortic atherosclerotic plaque. No acute osseous abnormality is seen. IMPRESSION: 1. No acute pleuroparenchymal process. Dictated by: Dictated on workstation # [id number]
[2022-04-04] MEDS ORDERED: GABA300S2 PO (18:01)
[2022-04-04] MEDS ORDERED: AMLO2.5T4 PO (18:01)
[2022-04-04] MEDS ORDERED: GABA-486 PO (18:45)
[2022-04-07] MEDS ORDERED: CIPR500T5 PO ×2 (09:56)
[2022-04-07] MEDS ORDERED: METR-145 PO ×2 (09:56)
== END 2022-04-04 02:58 | disposition home or self-care (01) ==
LOC: EDUNIT# 01:34 → ER 01:35
DX: R10.13 Epigastric pain (principal); G89.29 Other chronic pain; M25.569 Pain in unspecified knee; Z79.891 Long term (current) use of opiate analgesic
CPT/HCPCS: 36415; 71045; 80053; 83690; 84484; 85025; 93005

== ENCOUNTER 2022-04-04 07:41 | Inpatient (IN) | payer MEDICARE, OTHER ==
[~2022-04-04] VITALS: Ht 165.1 cm; Wt 65.9 kg
[2022-04-04] MEDS ORDERED: NS IV 1000 ML 1,000 ML IV STA (08:25)
[2022-04-04] MEDS ORDERED: fentaNYL INJ 100 MCG/2 ML AMP IVP STA ×2 (08:25→09:35)
[2022-04-04] MEDS ORDERED: SUCRALFATE 1 GM (CARAFATE) TAB PO ONE (08:30)
[2022-04-04 08:39] LABS: BASOPHILS # (AUTO) 0.1 10^3/uL (0.0-0.1); BASOPHILS % (AUTO) 0 % (0-10); EOSINOPHILS % (AUTO) 0 % (0-10); HEMATOCRIT 40 % (35-52); HEMOGLOBIN 12.6 g/dL (11.5-16.0); LYMPHOCYTES # (AUTO) 1.1 10^3/uL (1.0-4.0); LYMPHOCYTES % (AUTO) 10 % (12-44); MEAN CORPUSCULAR HEMOGLOBIN 27 pg (25-34); MEAN CORPUSCULAR HGB CONC 32 g/dL (32-36); MEAN CORPUSCULAR VOLUME 85 fL (80-99); MEAN PLATELET VOLUME 9.8 fL (9.0-12.2); MONOCYTES # (AUTO) 0.6 10^3/uL (0.0-1.0); MONOCYTES % (AUTO) 5 % (0-12); NEUTROPHILS # (AUTO) 9.3 10^3/uL (1.8-7.8); NEUTROPHILS % (AUTO) 84 % (42-75); PLATELET COUNT 367 10^3/uL (130-400); WHITE BLOOD COUNT 11.1 10^3/uL (4.3-11.0)
--- NOTE | 2022-04-04 08:44 | ED Abdominal Pain ---
General Chief Complaint: Abdominal/GI Problems Stated Complaint: ABD PAIN Nursing Triage Note: PT WAS SEEN HERE LAST NIGHT FOR THE SAME, CC OF ABD PAIN UPPER MID AND AROUND THE RT SIDE, DENIES VOMITING OR DIARRHEA Source of Information: Patient, Family Exam Limitations: No Limitations History of Present Illness Date Seen by Provider: Apr 04, 2022 Time Seen by Provider: 08:01 Initial Comments Here with report with persistent upper abdominal pain in the epigastric region that radiates to the right. Patient was seen for this very early this morning for same. She had cardiac work-up and laboratory evaluation done at that time. It was thought that this may be related to stopping her pantoprazole. She recently has been on aspirin after knee surgery. She has subsequently stopped and stop the pantoprazole for the same time. She has not had pain like this before. Denies nausea or vomiting. She has had some constipation. She is currently weaning off oxycodone. Otherwise has done okay. She did have a normal bowel movement this morning that was of normal brown color. When she got home earlier this morning, she did take the pantoprazole but that has not helped. Presents for reevaluation. Timing/Duration: 24 Hours Severity/Quality: Moderate Location: RUQ, Epigastric Radiation: Back Activities at Onset: None Modifying Factors: Worsens With Eating Associated Symptoms: No Chest Pain, No Fever/Chills, No Nausea/Vomiting, No Shortness of Air, No Swelling/Mass in Abdomen, No Weakness Allergies and Home Medications Allergies Coded Allergies: No Known Drug Allergies (Unverified , 08/24/18) Patient Home Medication List Home Medication List Reviewed: Yes Estradiol (Estradiol Tablet) 1 Mg Tablet, 1 MG PO DAILY, (Reported) Entered as Reported by: GABRIELA LUCIANO on 08/24/18 1156 Icosapent Ethyl (Vascepa) 1 Gm Capsule, 2 GM PO BID, (Reported) Entered as Reported by: GABRIELA LUCIANO on 08/24/18 1156 Lisinopril (Lisinopril) 10 Mg Tablet, 10 MG PO DAILY, (Reported) Entered as Reported by: GABRIELA LUCIANO on 08/24/18 1156 Review of Systems Review of Systems Constitutional: see HPI; No chills, No fever EENTM: No Nose Congestion, No Throat Pain Respiratory: Denies Cough Cardiovascular: Denies Chest Pain, Denies Edema Gastrointestinal: Abdominal Pain; Denies Blood Streaked Stools, Denies Nausea, Denies Rectal Bleeding, Denies Vomiting Genitourinary: No Symptoms Reported Musculoskeletal: see HPI; No muscle pain, No muscle stiffness Skin: no symptoms reported Psychiatric/Neurological: Denies Headache, Denies Weakness All Other Systems Reviewed Negative Unless Noted: Yes Past Fzedaoe-Cbhuki-Kpuesy Hx Patient Social History Tobacco Use?: No Substance use?: No Alcohol Use?: No Immunizations Up To Date Tetanus Booster (TDap): Unknown PED Vaccines UTD: No First/Initial COVID19 Vaccinat: UNKNOWN Second COVID19 Vaccination Kobe: UNKNOWN Third COVID19 Vaccination Date: UNKNOWN COVID19 Vaccine Senior Billing Consultant: Biscotti Seasonal Allergies Seasonal Allergies: No Past Medical History Surgery/Hospitalization HX: HTN HX. MRI OF R KNEE REVEALED TORN LIGAMENTS IN 2020- RT KNEE REPLACED Surgeries: Yes Hysterectomy Respiratory: No Cardiac: Yes Hypertension Neurological: No Genitourinary: No Gastrointestinal: No Musculoskeletal: Yes Arthritis Endocrine: No HEENT: Yes Cataract Cancer: Yes Skin What Type of Treatment Did You: Surgical Intervention Psychosocial: No Integumentary: No Blood Disorders: No Family Medical History Reviewed Nursing Family Hx Colon cancer Polyps in the colon No Pertinent Family Hx Physical Exam Vital Signs Vital Signs - First Documented 04/04/22 07:57 Temp 37.1 Pulse 76 Resp 18 B/P (MAP) 185/90 (121) Pulse Ox 98 O2 Delivery Room Air Capillary Refill : Less Than 3 Seconds Height/Weight/BMI Height: 5'7.00" Weight: 155lbs. 0.0oz. 70.376640qw; 24.00 BMI Method: General Appearance: WD/WN, no apparent distress HEENT: PERRL/EOMI, pharynx normal Neck: full range of motion, supple Respiratory: lungs clear, normal breath sounds Cardiovascular: regular rate, rhythm, no murmur Gastrointestinal: normal bowel sounds, soft; No guarding, No rebound; tenderness (Epigastric); No hepatomegaly Extremities: non-tender, normal inspection Back: normal inspection, no CVA tenderness, no vertebral tenderness Neurologic/Psychiatric: alert, oriented x 3 Skin: normal color, warm/dry Progress/Results/Core Measures Results/Orders Lab Results Laboratory Tests Test 04/04/22 08:30 Range/Units White Blood Count 11.1 H 4.3-11.0 10^3/uL Red Blood Count 4.70 3.80-5.11 10^6/uL Hemoglobin 12.6 11.5-16.0 g/dL Hematocrit 40 35-52 % Mean Corpuscular Volume 85 80-99 fL Mean Corpuscular Hemoglobin 27 25-34 pg Mean Corpuscular Hemoglobin Concent 32 32-36 g/dL Red Cell Distribution Width 14.7 H 10.0-14.5 % Platelet Count 367 130-400 10^3/uL Mean Platelet Volume 9.8 9.0-12.2 fL Immature Granulocyte % (Auto) 0 % Neutrophils (%) (Auto) 84 H 42-75 % Lymphocytes (%) (Auto) 10 L 12-44 % Monocytes (%) (Auto) 5 0-12 % Eosinophils (%) (Auto) 0 0-10 % Basophils (%) (Auto) 0 0-10 % Neutrophils # (Auto) 9.3 H 1.8-7.8 10^3/uL Lymphocytes # (Auto) 1.1 1.0-4.0 10^3/uL Monocytes # (Auto) 0.6 0.0-1.0 10^3/uL Eosinophils # (Auto) 0.0 0.0-0.3 10^3/uL Basophils # (Auto) 0.1 0.0-0.1 10^3/uL Immature Granulocyte # (Auto) 0.1 0.0-0.1 10^3/uL Sodium Level 137 135-145 MMOL/L Potassium Level 4.6 3.6-5.0 MMOL/L Chloride Level 105 98-107 MMOL/L Carbon Dioxide Level 20 L 21-32 MMOL/L Anion Gap 12 5-14 MMOL/L Blood Urea Nitrogen 20 H 7-18 MG/DL Creatinine 1.16 0.60-1.30 MG/DL Estimat Glomerular Filtration Rate 47 BUN/Creatinine Ratio 17 Glucose Level 134 H 70-105 MG/DL Calcium Level 9.9 8.5-10.1 MG/DL Troponin I < 0.028 <0.028 NG/ML C-Reactive Protein High Sensitivity 4.00 H 0.00-0.50 MG/DL My Orders Orders - SARAH KIMBLE MD Basic Metabolic Panel (04/04/22 08:25) Cbc With Automated Diff (04/04/22 08:25) Hs C Reactive Protein (04/04/22 08:25) Troponin I [place] (04/04/22 08:25) Ns Iv 1000 Ml (Sodium Chloride 0.9%) (04/04/22 08:25) Ed Iv/Invasive Line Start (04/04/22 08:25) Fentanyl Inj (Sublimaze Injection) (04/04/22 08:25) Sucralfate Tablet (Carafate Tablet) (04/04/22 08:30) Ct Abdomen/Pelvis W (04/04/22 09:11) Iohexol Injection (Omnipaque 350 Mg/Ml 1 (04/04/22 09:30) Sodium Chloride Flush (Catheter Flush Sy (04/04/22 09:30) Fentanyl Inj (Sublimaze Injection) (04/04/22 09:35) Iohexol Injection (Omnipaque 350 Mg/Ml 1 (04/04/22 10:00) Ns (Ivpb) (Sodium Chloride 0.9% Ivpb Bag (04/04/22 10:00) Fentanyl Inj (Sublimaze Injection) (04/04/22 12:00) Medications Given in ED Current Medications Medications Dose Ordered Sig/Javid Route Start Time Stop Time Status Last Admin Dose Admin Fentanyl Citrate 50 mcg ONCE ONCE IVP 04/04/22 12:00 04/04/22 12:01 DC 04/04/22 12:15 50 MCG Iohexol 100 ml ONCE ONCE IV 04/04/22 09:30 04/04/22 09:51 DC 04/04/22 09:43 78 ML Iohexol 100 ml ONCE ONCE IV 04/04/22 10:00 04/04/22 10:01 DC 04/04/22 09:52 78 ML Sodium Chloride 10 ml NEEDED PRN IV 04/04/22 09:30 04/04/22 09:51 DC 04/04/22 09:43 10 ML Sodium Chloride 100 ml ONCE ONCE IV 04/04/22 10:00 04/04/22 10:01 DC 04/04/22 09:52 77 ML Sucralfate 1 gm ONCE ONCE PO 04/04/22 08:30 04/04/22 08:31 DC 04/04/22 08:39 1 GM Vital Signs/I&O 10/22/22 04/04/22 04/04/22 04/04/22 07:57 08:39 09:48 12:15 Temp 37.1 37.1 37.1 37.1 Pulse 76 Resp 18 B/P (MAP) 185/90 (121) Pulse Ox 98 O2 Delivery Room Air Blood Pressure Mean: 121 Progress Progress Note : Progress Note Seen and evaluated. I did review visit from last night including labs. We will go ahead and get IV and recheck labs this morning with anticipation of possible CT scan due to persistent pain. We will recheck troponin and EKG. Normal saline 1 L bolus. Carafate 1 g p.o. Fentanyl 50 mcg IV for pain ordered. Monitor patient. 1230: Care delayed due to critical patient in department. Patient did receive an additional dose of fentanyl 50 mcg IV and we have also initiated Dilaudid 0.5 mg IV for pain. I did discuss the case with Dr. Urban. He has seen the patient in the emergency department. Does have findings with concerns for acute cholecystitis with cholelithiasis. Due to the patient's persistent pain, she will need admission. Dr. Santos, on-call for primary care physician, Dr. Aguayo, has graciously excepted the patient for admission with Dr. Urban on consult. Findings and concerns discussed with patient and family who agree with plan. Admit, inpatient status. Diagnostic Imaging Diagonstic Imaging: CT Plain Films/CT/US/NM/MRI: abdomen, pelvis Comments [facility]. [place], [place] NAME: ROSA ISELA GEIGER [facility] REC#: [id number] PT STATUS: REG ER : 1940 PHYSICIAN: SARAH KIMBLE MD ADMIT DATE: 04/04/22/ER Draft Date of Exam:04/04/22 CT ABDOMEN/PELVIS W PROCEDURE: CT abdomen and pelvis with contrast. TECHNIQUE: Multiple contiguous axial images were obtained through the abdomen and pelvis after administration of intravenous contrast. Auto Exposure Controls were utilized during the CT exam to meet ALARA standards for radiation dose reduction. All CT scans use one or more of the following dose optimizing techniques: automated exposure control, MA and/or KvP adjustment based on patient size and exam type or iterative reconstruction. INDICATION: Right upper quadrant pain. No prior studies are available for comparison. Imaging through lung bases does show some minimal linear scarring or atelectasis in the lingula. No discrete liver mass is identified. Gallbladder appears distended. There is a large stone in the gallbladder. There may be some very mild pericholecystic inflammation present as well. No biliary ductal dilatation is seen. The pancreas and spleen are unremarkable. No adrenal mass is detected. Kidneys are unremarkable. Aorta is heavily calcified but nonaneurysmal. Small and large bowel loops are normal caliber and appear nonobstructed. There is diverticulosis of the sigmoid but no evidence of acute diverticulitis. Very small fat-containing umbilical hernia is noted. There is no free fluid or fluid collection. The bladder is unremarkable. Uterus appears to be absent or atrophic. Bony structures are nonacute. IMPRESSION: 1. Cholelithiasis and gallbladder distention with mild pericholecystic inflammation, concerning for acute cholecystitis. Gallbladder ultrasound may be useful for further evaluation. No other significant abnormality is detected. 2. Uncomplicated diverticulosis. Dictated on workstation # [id number] Dict: 04/04/2246 Trans: 04/04/2255 [facility] [id number] Interpreted by: MARIAMA SILVER MD Electronically signed by: Departure Communication (Admissions) Time/Spoke to Admitting Phy: 12:30 Time/Spoke to Consulting Phy: 12:20 Impression Primary Impression: Cholecystitis, acute with cholelithiasis Qualified Codes: K80.00 - Calculus of gallbladder with acute cholecystitis without obstruction Disposition: ADMITTED INPATIENT Condition: Stable Admissions Decision to Admit Reason: Admit from ER (General) Decision to Admit/Date: Apr 04, 2022 Time/Decision to Admit Time: 12:30 Departure-Patient Inst. Referrals: ARLINE AGUAYO MD (PCP/Family) Primary Care Physician SARAH KIMBLE MD Apr 04, 2022 08:44
[2022-04-04 08:49] LABS: CHLORIDE 105 MMOL/L (98-107); POTASSIUM 4.6 MMOL/L (3.6-5.0); SODIUM 137 MMOL/L (135-145)
[2022-04-04 08:50] LABS: CALCIUM 9.9 MG/DL (8.5-10.1)
[2022-04-04 08:51] LABS: GLUCOSE 134 MG/DL (70-105)
[2022-04-04 08:52] LABS: CARBON DIOXIDE 20 MMOL/L (21-32)
[2022-04-04 08:55] LABS: CREATININE SERUM 1.16 MG/DL (0.60-1.30); GFR ESTIMATED 47
[2022-04-04 08:56] LABS: BUN/CREATININE RATIO 17
[2022-04-04] MEDS ORDERED: IOHEXOL 350 MG/ML 100 ML (OMNIPAQUE 350) VIAL IV ONE ×2 (09:30→10:00)
[2022-04-04] MEDS ORDERED: CATHETER FLUSH 10 ML SYR IV PRN (09:30)
[2022-04-04] MEDS ORDERED: HOLD METFORMIN - RECEIVED CONTRAST 20 ML VIAL IV SCH (09:30)
--- NOTE | 2022-04-04 09:56 | Diagnostic Imaging Report ---
PROCEDURE: CT abdomen and pelvis with contrast. TECHNIQUE: Multiple contiguous axial images were obtained through the abdomen and pelvis after administration of intravenous contrast. Auto Exposure Controls were utilized during the CT exam to meet ALARA standards for radiation dose reduction. All CT scans use one or more of the following dose optimizing techniques: automated exposure control, MA and/or KvP adjustment based on patient size and exam type or iterative reconstruction. INDICATION: Right upper quadrant pain. No prior studies are available for comparison. Imaging through lung bases does show some minimal linear scarring or atelectasis in the lingula. No discrete liver mass is identified. Gallbladder appears distended. There is a large stone in the gallbladder. There may be some very mild pericholecystic inflammation present as well. No biliary ductal dilatation is seen. The pancreas and spleen are unremarkable. No adrenal mass is detected. Kidneys are unremarkable. Aorta is heavily calcified but nonaneurysmal. Small and large bowel loops are normal caliber and appear nonobstructed. There is diverticulosis of the sigmoid but no evidence of acute diverticulitis. Very small fat-containing umbilical hernia is noted. There is no free fluid or fluid collection. The bladder is unremarkable. Uterus appears to be absent or atrophic. Bony structures are nonacute. IMPRESSION: 1. Cholelithiasis and gallbladder distention with mild pericholecystic inflammation, concerning for acute cholecystitis. Gallbladder ultrasound may be useful for further evaluation. No other significant abnormality is detected. 2. Uncomplicated diverticulosis. Dictated by: Dictated on workstation # [id number]
[2022-04-04] MEDS ORDERED: NS 100 ML (IVPB) BAG IV ONE (10:00)
[2022-04-04] MEDS ORDERED: fentaNYL INJ 100 MCG/2 ML AMP IVP ONE (12:00)
--- NOTE | 2022-04-04 12:56 | History & Physical-Hospitalist ---
History of Present Illness HPI/Chief Complaint Pt is an 81yoCF with a PMH of HTN who presented to the ER due to abdominal pain that radiates to her right side. She states it started suddenly yesterday. She ate Urdu food last night and then didn't feel well. She was seen in the ER last night as well. Her pain continued to worsen so she returned to the ER for evaluation. CT abd revealed cholelithiasis with likely acute cholecystitis. Surgery was consulted from the ER and would like to start her on IV abx and plan for surgery on 04/06. She reports normal BM this AM. Of note she did have TKA a month ago at [place] but has been doing well since then. Source: patient Date Seen 04/04/22 Time Seen by a Provider: 12:30 Attending Physician Arline Aguayo MD PCP Admitting Physician: Attending Physician: Referring Physician Date of Admission Home Medications & Allergies Home Medications Reviewed patient Home Medication Reconciliation performed by pharmacy medication reconciliations multimedia technician and/or nursing. Patients Allergies have been reviewed. Allergies Allergies Coded Allergies No Known Drug Allergies (Unverified08/24/18) Past Ksyadgc-Nafsus-Ajbwqq Hx Patient Social History Tobacco Use?: No Substance use?: No Alcohol Use?: No Immunizations Up To Date Date of Influenza Vaccine: Mar 14, 2018 First/Initial COVID19 Vaccinat: UNKNOWN Second COVID19 Vaccination Kobe: UNKNOWN Tetanus Booster (TDap): Unknown PED Vaccines UTD: No Date of Pneumonia Vaccine: Mar 14, 2018 Seasonal Allergies Seasonal Allergies: No Current Status Primary Language: Italian Preferred Spoken Language: Italian Implanted or Applied Medical D: Orthopedic hardware Past Medical History Surgeries: Hysterectomy Hypertension Arthritis Cataract Skin What Type of Treatment Did You: Surgical Intervention Blood Disorders: No Family Medical History Reviewed Nursing Family Hx Colon cancer Polyps in the colon No Pertinent Family Hx Review of Systems Constitutional: No chills, No fever EENTM: no symptoms reported Respiratory: no symptoms reported Cardiovascular: No chest pain, No edema Gastrointestinal: see HPI Genitourinary: no symptoms reported Musculoskeletal: joint pain (recent TKA) Skin: no symptoms reported Psychiatric/Neurological: No Symptoms Reported Physical Exam Physical Exam Vital Signs Vital Signs - First Documented 04/04/22 07:57 Temp 37.1 Pulse 76 Resp 18 B/P (MAP) 185/90 (121) Pulse Ox 98 O2 Delivery Room Air Capillary Refill : Less Than 3 Seconds Height, Weight, BMI Height: 5'7.00" Weight: 155lbs. 0.0oz. 70.994937lc; 24.00 BMI Method: General Appearance: No Apparent Distress, WD/WN, Thin HEENT: PERRL/EOMI, Moist Mucous Membranes; No Scleral Icterus (L), No Scleral I cterus (R) Neck: Normal Inspection, Supple Respiratory: Lungs Clear, No Respiratory Distress Cardiovascular: Regular Rate, Rhythm, No JVD, No Murmur Gastrointestinal: Normal Bowel Sounds, Non Tender (surprisingly nontender exam even in RUQ), Soft; No Distended, No Guarding Extremity: Normal Inspection, No Pedal Edema Neurologic/Psychiatric: Alert, Oriented x3, Normal Mood/Affect Skin: Normal Color, Warm/Dry Results Results/Procedures Labs Laboratory Tests 04/04/22 08:30 Patient resulted labs reviewed. Imaging: Reviewed Imaging Report Assessment/Plan Admission Diagnosis acute cholecystitis Admission Status: Inpatient Order (span 2 midnights) Reason for Inpatient Admission: see below Assessment and Plan acute cholecystitis- not septic Zosyn Surgery consulted, appreciate recs Dilaudid for pain CLD Hopeful for surgery on 04/06 HTN BP elevated likely due to pain Hydralazine prn OA with recent TKA PT/OT Hold ASA DVT ppx: SCD Diagnosis/Problems Diagnosis/Problems (1) Cholecystitis, acute with cholelithiasis Status: Acute Qualifiers: Biliary obstruction: without biliary obstruction Qualified Codes: K80.00 - Calculus of gallbladder with acute cholecystitis without obstruction (2) Hypertension Status: Chronic Qualifiers: Hypertension type: primary hypertension Qualified Codes: I10 - Essential (primary) hypertension Copy Copies To 1: ARLINE AGUAYO MD, KATELYN M MD Apr 04, 2022 12:56
[2022-04-04] MEDS ORDERED: MELATONIN 3 MG TABLET PO PRN (13:15)
[2022-04-04] MEDS ORDERED: ONDANSETRON 4 MG/2 ML (SDV) Z0FRAN IV PRN (13:15)
[2022-04-04] MEDS ORDERED: NALOXONE 0.4 MG/ML 1 ML (NARCAN) VIAL IV PRN (13:15)
--- NOTE | 2022-04-04 13:19 | CONSULTATION REPORT ---
DATE OF SERVICE: 04/04/2022 ATTENDING PRIMARY CARE PHYSICIAN: Destinee Aguayo MD. ADMITTING PHYSICIAN: Dr. Schwab. HISTORY OF PRESENT ILLNESS: The patient is an 81-year-old female, who presented to the Emergency Department with right upper abdominal quadrant pain starting yesterday. She states that the pain was severe and would not remit. She states that she went out to eat, which was Malagasy food and after eating a meal, she had developed the pain. She reported mild nausea; however, no vomiting. She states that her bowel movements have been normal. Upon further questioning, she reports that she has had some milder similar symptoms before in the past few years; however, she thought this was acid indigestion. She also states that she had a recent right total knee arthroplasty approximately one month ago and was on ibuprofen; however, has discontinued it since that time. Of note, she also did see her administrative hearing officer before the procedure and was cleared for surgery. PAST MEDICAL HISTORY: Hypertension, hypercholesterolemia, and degenerative joint disease. PAST SURGICAL HISTORY: Partial hysterectomy and right total knee arthroplasty 02/2022. ALLERGIES: BACTRIM and ELAVIL. MEDICATIONS: Aspirin 81 mg daily, Protonix 40 mg daily, lisinopril 10 mg daily, and amlodipine 2.5 mg daily. SOCIAL HISTORY: Negative smoke and negative alcohol. FAMILY HISTORY: Noncontributory. REVIEW OF SYSTEMS: A well-nourished female currently states that she does have continued pain in the right upper abdominal quadrant. She does not report any chest pain, palpitations, diaphoresis. No shortness of breath or difficulty in breathing. Intermittent nausea with the abdominal pain, no vomiting. Normal bowel movements. No red blood per rectum, no dark tarry stools. She states that she may have had some mild fevers last night; however, is unsure. No recent inadvertent weight loss. All other review of systems negative. PHYSICAL EXAMINATION: VITAL SIGNS: Temperature 37.1, blood pressure 185/90, pulse 76, respirations 18, and pulse ox 98% on room air. CHEST: Clear. Good breath sounds bilaterally. HEART: Regular, no murmurs. EXTREMITIES: No lower extremity edema and negative Homans sign. HEENT: No scleral icterus. NECK: No cervical lymphadenopathy. ABDOMEN: Soft and nondistended. There is pain in the right upper abdominal quadrant upon palpation with voluntary guarding and no rebound. SKIN: Warm and dry. ASSESSMENT AND PLAN: An 81-year-old female with acute cholecystitis based on CT scan findings, which show gallstones as well as gallbladder wall thickening as well as pericholecystic inflammation. The natural history of gallbladder disease was explained to the patient and due to the acute nature of the gallbladder, we will admit her, place her on IV fluids, IV antibiotics as well as clear liquids and once her pain is controlled and the inflammation has subsided, we will then proceed with a laparoscopic cholecystectomy on this admission. She also appears to be hypotensive as well and we will allow internal medicine to get this done appropriately as well. Job ID: [id number] DocumentID: [id number] Dictated Date: 04/04/2022 12:47:17 [employer] Date: 04/04/2022 13:19:00 Dictated By: KAYY GOLDBERG MD
[2022-04-04] MEDS: HYDROmorphone 2 MG/ML VIAL (DILAUDID) IV PRN ×2 (13:43→15:53)
[2022-04-04] MEDS: NS IV 1000 ML 1,000 ML IV SCH ×2 (13:44→22:04)
[2022-04-04] MEDS ORDERED: PIPERACILLIN SODIUM/TAZOBACTAM 4.5 GM in NS (IVPB) 100 ML IV ONE (14:00)
[2022-04-04] MEDS: hydrALAZINE (APESOLINE) 20 MG/ML VIAL IV PRN (15:54)
[2022-04-04 16:03] VITALS: BP 202/75
[2022-04-04] MEDS ORDERED: GABA300S2 PO (18:01)
[2022-04-04] MEDS ORDERED: AMLO2.5T4 PO (18:01)
[2022-04-04] MEDS ORDERED: GABA-486 PO (18:45)
[2022-04-04] MEDS: ACETAMINOPHEN 325 MG TABLET PO PRN ×2 (19:37→23:37)
[2022-04-04 19:44] VITALS: BP 168/73
[2022-04-04] MEDS: GABAPENTIN 100 MG (NEURONTIN) CAP PO SCH (21:46)
[2022-04-04] MEDS: PIPERACILLIN SODIUM/TAZOBACTAM 4.5 GM in NS (IVPB) 100 ML IV SCH (22:04)
[2022-04-04 23:20] VITALS: BP 162/71
[2022-04-05 03:50] VITALS: BP 169/71
[2022-04-05] MEDS: PIPERACILLIN SODIUM/TAZOBACTAM 4.5 GM in NS (IVPB) 100 ML IV SCH (04:48)
[2022-04-05] MEDS: NS IV 1000 ML 1,000 ML IV SCH ×3 (04:48→20:40)
[2022-04-05 05:58] LABS: BASOPHILS # (AUTO) 0.1 10^3/uL (0.0-0.1); BASOPHILS % (AUTO) 1 % (0-10); EOSINOPHILS # (AUTO) 0.1 10^3/uL (0.0-0.3); EOSINOPHILS % (AUTO) 1 % (0-10); HEMATOCRIT 38 % (35-52); HEMOGLOBIN 11.9 g/dL (11.5-16.0); LYMPHOCYTES # (AUTO) 1.2 10^3/uL (1.0-4.0); LYMPHOCYTES % (AUTO) 8 % (12-44); MEAN CORPUSCULAR HEMOGLOBIN 27 pg (25-34); MEAN CORPUSCULAR HGB CONC 32 g/dL (32-36); MEAN CORPUSCULAR VOLUME 85 fL (80-99); MEAN PLATELET VOLUME 9.9 fL (9.0-12.2); MONOCYTES # (AUTO) 1.1 10^3/uL (0.0-1.0); MONOCYTES % (AUTO) 8 % (0-12); NEUTROPHILS # (AUTO) 11.8 10^3/uL (1.8-7.8); NEUTROPHILS % (AUTO) 83 % (42-75); PLATELET COUNT 318 10^3/uL (130-400); WHITE BLOOD COUNT 14.3 10^3/uL (4.3-11.0)
[2022-04-05 06:18] LABS: ALBUMIN 3.4 GM/DL (3.2-4.5); POTASSIUM 3.6 MMOL/L (3.6-5.0)
[2022-04-05 06:19] LABS: CALCIUM 8.8 MG/DL (8.5-10.1)
[2022-04-05 06:22] LABS: BILIRUBIN,TOTAL 1.5 MG/DL (0.1-1.0)
[2022-04-05 06:24] LABS: CREATININE SERUM 0.99 MG/DL (0.60-1.30)
[2022-04-05 06:26] LABS: ANISOCYTOSIS SLIGHT; BAND NEUTROPHILS 2 %; EOSINOPHILS % (MANUAL) 1 %; LYMPHOCYTES % (MANUAL) 11 %; MONOCYTES % (MANUAL) 6 %; NEUTROPHILS % (MANUAL) 80 %; PLATELET ESTIMATE NORMAL
[2022-04-05 07:55] VITALS: BP 175/79
--- NOTE | 2022-04-05 10:31 | Progress Note - Hospitalist ---
Subjective HPI/CC On Admission Date Seen by Provider: Apr 05, 2022 Pt is an 81yoCF with a PMH of HTN who presented to the ER due to abdominal pain that radiates to her right side. She states it started suddenly yesterday. She ate [place] food last night and then didn't feel well. She was seen in the ER last night as well. Her pain continued to worsen so she returned to the ER for evaluation. CT abd revealed cholelithiasis with likely acute cholecystitis. Surgery was consulted from the ER and would like to start her on IV abx and plan for surgery on 04/06. She reports normal BM this AM. Of note she did have TKA a month ago at [place] but has been doing well since then. Subjective/Events-last exam Pt reports doing about the same. Persistent pain. Controlled with medications though. Daughter has multiple questions about timing of surgery- referred to surgeon for those questions. Objective Exam Vital Signs Vital Signs Date Time Temp Pulse Resp B/P (MAP) Pulse Ox O2 Delivery O2 Flow Rate FiO2 04/05/22 07:55 37.3 77 16 175/79 (111) 98 Room Air Capillary Refill : Less Than 3 Seconds General Appearance: No Apparent Distress, WD/WN Respiratory: Lungs Clear, No Respiratory Distress Cardiovascular: Regular Rate, Rhythm, No Murmur Gastrointestinal: Normal Bowel Sounds; No Distended, No Guarding, No Rebound; Tenderness (right sided tenderness today- new) Neurologic/Psychiatric: Alert, Oriented x3 Results/Procedures Lab Laboratory Tests 04/05/22 05:50 Patient resulted labs reviewed. Imaging: Reviewed Imaging Report Assessment/Plan Assessment and Plan Assess & Plan/Chief Complaint Sepsis acute cholecystitis Progressed to sepsis overnight with leukocytosis and fever Cipro and Flagyl Surgery consulted, appreciate recs Dilaudid for pain Defer timing of surgery to Dr Urban HTN BP elevated likely due to pain Hydralazine prn OA with recent TKA PT/OT Continue home gabapentin DVT ppx: SCD Diagnosis/Problems Diagnosis/Problems (1) Cholecystitis, acute with cholelithiasis Status: Acute Qualifiers: Biliary obstruction: without biliary obstruction Qualified Codes: K80.00 - Calculus of gallbladder with acute cholecystitis without obstruction (2) Hypertension Status: Chronic Qualifiers: Hypertension type: primary hypertension Qualified Codes: I10 - Essential (primary) hypertension COSMO BRIAN MD Apr 05, 2022 10:31
[2022-04-05] MEDS: CIPROFLOXACIN IV 400MG/200ML 200 ML IV SCH ×2 (10:52→20:40)
[2022-04-05] MEDS: lisINopril 10 MG (PRINIVIL) TABLET PO SCH (10:57)
[2022-04-05] MEDS: amLODIPine 2.5MG (NORVASC) TAB PO SCH (10:57)
[2022-04-05] MEDS ORDERED: oxyCODONE/APAP 10/325MG (PERCOCET 10) TABLET PO PRN (11:00)
[2022-04-05] MEDS ORDERED: oxyCODONE/APAP 5/325MG (PERCOCET 5) TABLET PO PRN (11:00)
--- NOTE | 2022-04-05 11:00 | Progress Note ---
Subjective Date Seen by a Provider: Apr 05, 2022 Time Seen by a Provider: 10:00 Subjective/Events-last exam Patient seen with Dr. Urban. Patient reports doing well. Still having episodes of RUQ pain, but more when she moves. Tolerating clear liquids. Denies any nausea or vomiting. Objective Exam Vital Signs Date Time Temp Pulse Resp B/P (MAP) Pulse Ox O2 Delivery O2 Flow Rate FiO2 04/05/22 07:55 37.3 77 16 175/79 (111) 98 Room Air 04/05/22 03:50 37.7 82 18 169/71 (103) 96 Room Air 04/05/22 00:44 37.6 04/05/22 00:44 37.6 04/04/22 23:20 38.0 84 18 162/71 (101) 96 Room Air 04/04/22 21:31 37.7 04/04/22 21:31 37.7 04/04/22 20:00 Room Air 04/04/22 19:44 38.2 84 18 168/73 (104) 96 Room Air 04/04/22 19:37 38.2 04/04/22 16:03 37.6 80 17 202/75 (117) 97 Room Air 04/04/22 15:28 Room Air 04/04/22 13:25 37.4 79 18 184/91 98 Room Air 04/04/22 12:15 37.1 I & O 04/05/22 07:00 Intake Total 2000 ml Balance 2000 ml Capillary Refill : Less Than 3 Seconds General Appearance: No Apparent Distress, WD/WN Neck: Normal Inspection, Supple Respiratory: No Accessory Muscle Use, No Respiratory Distress Gastrointestinal: normal bowel sounds, soft, tenderness (RUQ) Extremity: Normal Inspection, Normal Range of Motion Neurologic/Psychiatric: Alert, Oriented x3 Skin: Normal Color, Warm/Dry Results Lab Laboratory Tests 04/05/22 05:50: White Blood Count 14.3H, Red Blood Count 4.44, Hemoglobin 11.9, Hematocrit 38, Mean Corpuscular Volume 85, Mean Corpuscular Hemoglobin 27, Mean Corpuscular Hemoglobin Concent 32, Red Cell Distribution Width 15.0H, Platelet Count 318, Mean Platelet Volume 9.9, Immature Granulocyte % (Auto) 1, Neutrophils (%) (Auto) 83H, Lymphocytes (%) (Auto) 8L, Monocytes (%) (Auto) 8, Eosinophils (%) (Auto) 1, Basophils (%) (Auto) 1, Neutrophils # (Auto) 11.8H, Lymphocytes # (Auto) 1.2, Monocytes # (Auto) 1.1H, Eosinophils # (Auto) 0.1, Basophils # (Auto) 0.1, Immature Granulocyte # (Auto) 0.1, Neutrophils % (Manual) 80, Lymphocytes % (Manual) 11, Monocytes % (Manual) 6, Eosinophils % (Manual) 1, Band Neutrophils 2, Platelet Estimate NORMAL, Anisocytosis SLIGHT, Sodium Level 134L, Potassium Level 3.6, Chloride Level 107, Carbon Dioxide Level 17L, Anion Gap 10, Blood Urea Nitrogen 13, Creatinine 0.99, Estimat Glomerular Filtration Rate 57, BUN/Creatinine Ratio 13, Glucose Level 155H, Calcium Level 8.8, Corrected Calcium 9.3, Total Bilirubin 1.5H, Aspartate Amino Transf (AST/SGOT) 2 2, Alanine Aminotransferase (ALT/SGPT) 17, Alkaline Phosphatase 102, Total Protein 7.0, Albumin 3.4 Assessment/Plan Assessment/Plan Assess & Plan/Chief Complaint An 81 year old female with acute calculous cholecystitis WBC 14.3 Will switch abx to cipro and flagyl CBC and CMP in am Continue with IV fluids, pain and nausea meds NPO at 0400 Will schedule for jan guerreroe tomorrow MIGUEL FRANKEL APRN Apr 05, 2022 11:00
--- NOTE | 2022-04-05 11:01 | Progress Note ---
Subjective Date Seen by a Provider: Apr 05, 2022 Time Seen by a Provider: 10:00 Subjective/Events-last exam doing better. less abd pain. still having HTN. tolerating clears. Objective Exam Vital Signs Date Time Temp Pulse Resp B/P (MAP) Pulse Ox O2 Delivery O2 Flow Rate FiO2 04/05/22 07:55 37.3 77 16 175/79 (111) 98 Room Air 04/05/22 03:50 37.7 82 18 169/71 (103) 96 Room Air 04/05/22 00:44 37.6 04/05/22 00:44 37.6 04/04/22 23:20 38.0 84 18 162/71 (101) 96 Room Air 04/04/22 21:31 37.7 04/04/22 21:31 37.7 04/04/22 20:00 Room Air 04/04/22 19:44 38.2 84 18 168/73 (104) 96 Room Air 04/04/22 19:37 38.2 04/04/22 16:03 37.6 80 17 202/75 (117) 97 Room Air 04/04/22 15:28 Room Air 04/04/22 13:25 37.4 79 18 184/91 98 Room Air 04/04/22 12:15 37.1 I & O 04/05/22 07:00 Intake Total 2000 ml Balance 2000 ml Capillary Refill : Less Than 3 Seconds General Appearance: No Apparent Distress HEENT: PERRL/EOMI Neck: Full Range of Motion Respiratory: Chest Non Tender Cardiovascular: Regular Rate, Rhythm Gastrointestinal: normal bowel sounds, tenderness Extremity: Normal Capillary Refill Neurologic/Psychiatric: Alert, Oriented x3 Skin: Normal Color Lymphatic: No Adenopathy Results Lab Laboratory Tests 04/05/22 05:50: White Blood Count 14.3H, Red Blood Count 4.44, Hemoglobin 11.9, Hematocrit 38, Mean Corpuscular Volume 85, Mean Corpuscular Hemoglobin 27, Mean Corpuscular Hemoglobin Concent 32, Red Cell Distribution Width 15.0H, Platelet Count 318, Mean Platelet Volume 9.9, Immature Granulocyte % (Auto) 1, Neutrophils (%) (Auto) 83H, Lymphocytes (%) (Auto) 8L, Monocytes (%) (Auto) 8, Eosinophils (%) (Auto) 1, Basophils (%) (Auto) 1, Neutrophils # (Auto) 11.8H, Lymphocytes # (Auto) 1.2, Monocytes # (Auto) 1.1H, Eosinophils # (Auto) 0.1, Basophils # (Auto) 0.1, Immature Granulocyte # (Auto) 0.1, Neutrophils % (Manual) 80, Lymphocytes % (Manual) 11, Monocytes % (Manual) 6, Eosinophils % (Manual) 1, Band Neutrophils 2, Platelet Estimate NORMAL, Anisocytosis SLIGHT, Sodium Level 134L, Potassium Level 3.6, Chloride Level 107, Carbon Dioxide Level 17L, Anion Gap 10, Blood Urea Nitrogen 13, Creatinine 0.99, Estimat Glomerular Filtration Rate 57, BUN/Creatinine Ratio 13, Glucose Level 155H, Calcium Level 8.8, Corrected Calcium 9.3, Total Bilirubin 1.5H, Aspartate Amino Transf (AST/SGOT) 22, Alanine Aminotransferase (ALT/SGPT) 17, Alkaline Phosphatase 102, Total Protein 7.0, Albumin 3.4 Assessment/Plan Assessment/Plan Assess & Plan/Chief Complaint acute calcoulous cholecystitis. resume PO home HTN meds. schedule laparoscopic cholecystectomy for tomorrow. KAYY GOLDBERG MD Apr 05, 2022 11:01
--- NOTE | 2022-04-05 11:02 | Progress Note-Pre Operative ---
Pre-Operative Progress Note Date of Available H&P: Apr 05, 2022 Date H&P Reviewed: Apr 05, 2022 Time H&P Reviewed: 12:00 Pre-Operative Diagnosis: acute calculous cholecystitis. KAYY GOLDBERG MD Apr 05, 2022 11:02
[2022-04-05 11:56] VITALS: BP 183/99
[2022-04-05] MEDS: hydrALAZINE (APESOLINE) 20 MG/ML VIAL IV PRN (12:15)
[2022-04-05] MEDS: morphine INJ 4 MG/ML 1 ML (VIAL/SYRINGE) IVP PRN ×2 (12:16→19:36)
[2022-04-05] MEDS: LORazepam INJ 2 MG/ML (ATIVAN) VIAL IVP PRN (12:16)
[2022-04-05] MEDS: metroNIDAZOLE 500MG/100ML IVPB 100 ML IV SCH ×2 (13:31→22:07)
[2022-04-05 16:00] VITALS: BP 165/77
[2022-04-05 19:24] VITALS: BP 160/76
[2022-04-05] MEDS: ACETAMINOPHEN 325 MG TABLET PO PRN (19:36)
[2022-04-05] MEDS: GABAPENTIN 100 MG (NEURONTIN) CAP PO SCH (20:40)
[2022-04-06] VITALS (12 sets, daily range): BP systolic 141–187; BP diastolic 63–84
[2022-04-06] MEDS: metroNIDAZOLE 500MG/100ML IVPB 100 ML IV SCH ×3 (05:20→22:13)
[2022-04-06] MEDS: NS IV 1000 ML 1,000 ML IV SCH ×4 (05:20→20:33)
[2022-04-06 05:57] LABS: HEMATOCRIT 37 % (35-52); HEMOGLOBIN 11.5 g/dL (11.5-16.0); MEAN CORPUSCULAR HEMOGLOBIN 27 pg (25-34); MEAN CORPUSCULAR HGB CONC 31 g/dL (32-36); MEAN CORPUSCULAR VOLUME 85 fL (80-99); MEAN PLATELET VOLUME 10.2 fL (9.0-12.2); PLATELET COUNT 324 10^3/uL (130-400); WHITE BLOOD COUNT 11.8 10^3/uL (4.3-11.0)
[2022-04-06 06:04] LABS: ALBUMIN 3.1 GM/DL (3.2-4.5); POTASSIUM 3.8 MMOL/L (3.6-5.0)
[2022-04-06 06:06] LABS: CALCIUM 8.7 MG/DL (8.5-10.1)
[2022-04-06 06:07] LABS: TOTAL PROTEIN 6.5 GM/DL (6.4-8.2)
[2022-04-06 06:09] LABS: BILIRUBIN,TOTAL 1.1 MG/DL (0.1-1.0)
[2022-04-06 06:10] LABS: CREATININE SERUM 0.92 MG/DL (0.60-1.30)
--- NOTE | 2022-04-06 08:40 | Progress Note ---
Subjective Subjective Date Seen by Provider: Apr 06, 2022 Time Seen by Provider: 08:25 Pt is an 81 y/o female who was admitted for acute calculous cholecystitis. This morning she states that she is ready for her surgery, has not eaten much since Wednesday and her abdominal pain is still persistent across her upper abdo men. Review of Systems General: No Chills; Fatigue; No Malaise HEENT: No Head Aches Pulmonary: No Dyspnea, No Cough Cardiovascular: No: Chest Pain, Palpitations Gastrointestinal: Abdominal Pain; No: Nausea, Diarrhea, Constipation Genitourinary: No Dysuria, No Frequency Musculoskeletal: No: neck pain, back pain Neurological: No: Weakness, Confusion All Other Systems Reviewed All Other Systems Reviewed: Yes Objective Exam Vital Signs Vital Signs Date Time Temp Pulse Resp B/P (MAP) Pulse Ox O2 Delivery O2 Flow Rate FiO2 04/06/22 07:55 36.4 82 18 187/84 (118) 97 Room Air 04/06/22 04:00 36.7 78 16 162/75 (104) 97 Room Air 04/06/22 00:00 37.2 77 16 167/77 (107) 97 Room Air 04/05/22 20:36 Room Air 04/05/22 20:14 37.9 04/05/22 19:24 38.4 84 19 160/76 (104) 96 Room Air 04/05/22 16:00 37.8 85 16 165/77 (106) 96 Room Air 04/05/22 11:56 37.7 74 18 183/99 (127) 97 Room Air I & O 04/06/22 07:00 Intake Total 670 ml Balance 670 ml General Appearance: No Apparent Distress, WD/WN HEENT: PERRL/EOMI Neck: Full Range of Motion Respiratory: Chest Non Tender Cardiovascular: Regular Rate, Rhythm Gastrointestinal: Normal Bowel Sounds, Soft; No Distended, No Guarding, No Rebound; Tenderness (diffusely across upper abdomen) Extremity: Normal Capillary Refill, Non Tender, No Calf Tenderness, No Pedal Edema Neurologic/Psychiatric: Alert, Oriented x3, No Motor/Sensory Deficits, Normal Mood/Affect Skin: Normal Color, Warm/Dry Lymphatic: No Adenopathy Results Lab Laboratory Tests 04/06/22 05:34: White Blood Count 11.8H, Red Blood Count 4.30, Hemoglobin 11.5, Hematocrit 37, Mean Corpuscular Volume 85, Mean Corpuscular Hemoglobin 27, Mean Corpuscular Hemoglobin Concent 31L, Red Cell Distribution Width 14.8H, Platelet Count 324, Mean Platelet Volume 10.2, Sodium Level 138, Potassium Level 3.8, Chloride Level 109H, Carbon Dioxide Level 19L, Anion Gap 10, Blood Urea Nitrogen 13, Creatinine 0.92, Estimat Glomerular Filtration Rate 63, BUN/Creatinine Ratio 14, Glucose Level 91, Calcium Level 8.7, Corrected Calcium 9.4, Total Bilirubin 1.1H, Aspartate Amino Transf (AST/SGOT) 25, Alanine Aminotransferase (ALT/SGPT) 18, Alkaline Phosphatase 101, Total Protein 6.5, Albumin 3.1L Assessment/Plan Assessment/Plan Admission Dx Sepsis Acute calculus cholecystitis Leukocytosis Hypertension OA with recent TKA Assessment and Plan Sepsis Acute calculus cholecystitis Leukocytosis Hypertension OA with recent TKA Sepsis due to Acute calculus cholecystitis - pt on IV antibiotics - surgery planned for today Leukocytosis Hypertension - pt on IV hydralazine - resume home regimen as well OA with recent TKA - continue with therapy, stretching and monitoring of her recovery. pt on lovenox for dvt prophylaxis. ARLINE HOFFMAN MD Apr 06, 2022 08:40
[2022-04-06] MEDS: amLODIPine 2.5MG (NORVASC) TAB PO SCH (09:28)
[2022-04-06] MEDS: lisINopril 10 MG (PRINIVIL) TABLET PO SCH (09:28)
[2022-04-06] MEDS: CIPROFLOXACIN IV 400MG/200ML 200 ML IV SCH ×2 (09:30→20:33)
[2022-04-06] MEDS: hydrALAZINE (APESOLINE) 20 MG/ML VIAL IV PRN (09:30)
--- NOTE | 2022-04-06 10:01 | Physical Therapy Evaluation ---
PT Evaluation-General Medical Diagnosis Admission Date Apr 04, 2022 at 13:07 Medical Diagnosis: Abdominal Pain Onset Date: Apr 04, 2022 Therapy Diagnosis Therapy Diagnosis: general weakness Height/Weight Height (Feet): 5 Height (Inches): 7.00 Weight (Pounds): 155 Weight (Ounces): 0.0 Precautions Precautions/Isolations: Standard Precautions Weight Bear Status Right Lower Extremity: Right Full Weight Bearing Left Lower Extremity: Left Full Weight Bearing Referral Physician: Tom Reason for Referral: Evaluation/Treatment Medical History Additional Medical History Surgeries: Hysterectomy Hypertension Arthritis Cataract Skin What Type of Treatment Did You: Surgical Intervention Blood Disorders: No Reviewed History: Yes Social History Home: Single Level Current Living Status: Significant Other Entry Into Home: Stairs Without Railing PT Steps Into Home: 3 PT Steps Inside Home: 1 (drop floor) Prior Prior Level of Function SCALE: Activities may be completed with or without assistive devices. 6-Snexthmpfb-dlywxtk completes the activity by him/herself with no assistance from a helper. 5-Set-up or Clean-up Assistance-helper sets up or cleans up; patient completes activity. [place] assists only prior to or following the activity. 4-Supervision or Touching Assistance-helper provides verbal cues and/or touching/steadying and/or contact guard assistance as patient completes activity. Assistance may be provided throughout the activity or intermittently. 3-Partial/Moderate Assistance-helper does LESS THAN HALF the effort. [place] lifts, holds or supports trunk or limbs, but provides less than half the effort. 2-Substantial/Maximal Assistance-helper does MORE THAN HALF the effort. [place] lifts or holds trunk or limbs and provides more than half the effort. 6-Lstusijrw-tasxxv does ALL the effort. Patient does none of the effort to complete the activity. Or, the assistance of 2 or more helpers is required for the patient to complete the activity. If activity was not attempted, code reason: 7-Patient Refused. 9-Not Applicable-not attempted and the patient did not perform the activity before the current illness, exacerbation or injury. 10-Not Attempted due to Environmental Limitations-(lack of equipment, weather restraints, etc.). 88-Not Attempted due to Medical Conditions or Safety Concerns. Bed Mobility: 6 Transfers (B,C,W/C): 6 Gait: 6 Indoor Mobility (Ambulation): Independent Stairs: Independent Prior Devices Use: Other-see list below Prior Device Use: Single Point Cane PT Evaluation-Current Subjective Pt in bed pre-tx with son in room, reports pain 1-2/10 in abdomen, agrees to PT. Objective Patient Orientation: Person, Place, Situation Attachments: IV ROM/Strength ROM Lower Extremities Left knee WNL, Right knee 90 degrees flexion. Strength Lower Extremities Left Knee (flexion 5/5. extension 5/5), Right Knee (flexion 3+/5, extension 4/5). Sensory Hearing: Functional Sensation Right Lower Extremit: Intact Sensation Left Lower Extremity: Intact Transfers Sit to Lying (QC): 4 Lying to Sitting/Side of Bed(Q: 6 Sit to Stand (QC): 4 Chair/Kue-rn-Dcadd Xfer(QC): 4 SBA Gait Does the Patient Walk?: Yes Mode of Locomotion: Walk Anticipated Mode of Locomotion: Walk Walk 10 feet (QC): 4 Walk 50 ft with 2 Turns(QC): 4 Walk 150 ft (QC): 4 Distance: 250ft Gait Assistive Device: FWW Comments/Gait Description SBA, decreased right knee extension, brisk pace Wheelchair Training Does the Pt Use a Wheelchair?: No Balance Sitting Static: Normal Sitting Dynamic: Normal Standing Static: Good Standing Dynamic: Good Assessment/Needs Patient ambulates slightly faster speed, good step length, good foot clearance, slight forward posture. Rehab Potential: Good PT Intermediate Goals Intermediate Goals PT Electrotype Finisher Goals Time Frame: Apr 13, 2022 Roll Left & Right (QC): 6 Sit to Lying (QC): 6 Lying-Sitting on Side/Bed(QC): 6 Sit to Stand (QC): 6 Chair/Rgf-su-Oavpf Xfer(QC): 6 Toilet Transfer (QC): 6 Does the Patient Walk: Yes Walk 10 feet (QC): 6 Walk 50ft with 2 Turns (QC): 6 Walk 150 ft (QC): 6 Walking 10ft on Uneven Surface: 6 1 Step (curb) (QC): 6 4 Steps (QC): 6 Picking up an Object (QC): 6 Does the Pt use WC or Scooter?: No PT Plan Problem List Problem List: Activity Tolerance, Functional Strength, Safety, Balance, Gait, Transfer, Bed Mobility, ROM Treatment/Plan Treatment Plan: Continue Plan of Care Treatment Plan: Bed Mobility, Education, Functional Activity Deann, Functional Strength, Gait, Safety, Transfers Treatment Duration: Apr 13, 2022 Frequency: 6 times per week Estimated Hrs Per Day: .25 hour per day Patient and/or Family Agrees t: Yes Safety Risks/Education Patient Education: Gait Training, Transfer Techniques, Correct Positioning, Safety Issues Teaching Recipient: Patient Teaching Methods: Demonstration, Discussion Response to Teaching: Reinforcement Needed Discharge Recommendations Plan Patient will demonstrate independent ambulation, bed mobility, transfers, sit to stands from chair or bed before DC in order to ensure patient safety at home and in the community. Patient demonstrate appropriate strength, activity tolerance, balance WNL. Therapy Discharge Recommendati: Home & Family, Post Acute PT Time/GCodes Time In: 932 Time Out: 942 Total Billed Treatment Time: 10 Total Billed Treatment 1 visit EVL 10min JANE MCCARTHY PT Apr 06, 2022 10:01
--- NOTE | 2022-04-06 10:29 | Occupational Therapy Eval ---
OT Evaluation-General/PLF Medical Diagnosis Admission Date Apr 04, 2022 at 13:07 Medical Diagnosis: Abdominal Pain Onset Date: Apr 04, 2022 Therapy Diagnosis Therapy Diagnosis: N/A Height/Weight Height (Feet): 5 Height (Inches): 7.00 Weight (Pounds): 155 Weight (Ounces): 0.0 Precautions Precautions/Isolations: Standard Precautions Referral Physician: Tom Referral Reason: Evaluation/Treatment Medical History Current History Pt came into ER with abdominal pain. Pt and pt's son reported that she will be having surgery at 1 or 2 pm today (04/06/22) on her gallbladder. Pt recently (1 month ago) had a knee replacement and has had her son living with her to assist in that healing process. Pt reports that son will not be living with her after this hospital stay and will be living alone. Pt uses a cane. She completes all ADLs independently and her son is only assisting her with IADLs now (due to knee surgery), but wont be after this hospital stay. Reviewed History: Yes Social History Home: Single Level Current Living Status: Children Entry Into Home: Stairs With Railing Steps Into Home: 2 Steps Inside Home: 1 (drop floor) ADL-Prior Level of Function SCALE: Activities may be completed with or without assistive devices. 4-Ofmlfmvmfl-dviekpi completes the activity by him/herself with no assistance from a helper. 5-Set-up or Clean-up Assistance-helper sets up or cleans up; patient completes activity. [place] assists only prior to or following the activity. 4-Supervision or Touching Assistance-helper provides verbal cues and/or touching/steadying and/or contact guard assistance as patient completes activity. Assistance may be provided throughout the activity or intermittently. 3-Partial/Moderate Assistance-helper does LESS THAN HALF the effort. [place] lifts, holds or supports trunk or limbs, but provides less than half the effort. 2-Substantial/Maximal Assistance-helper does MORE THAN HALF the effort. [place] lifts or holds trunk or limbs and provides more than half the effort. 1-Tzsaosugc-myxund does ALL the effort. Patient does none of the effort to complete the activity. Or, the assistance of 2 or more helpers is required for the patient to complete the activity. If activity was not attempted, code reason: 7-Patient Refused. 9-Not Applicable-not attempted and the patient did not perform the activity before the current illness, exacerbation or injury. 10-Not Attempted due to Environmental Limitations-(lack of equipment, weather restraints, etc.). 88-Not Attempted due to Medical Conditions or Safety Concerns. Self Care: Independent Functional Cognition: Independent DME/Equipment: Grab Bars, Tub/Shower Drive Self: Yes OT Current Status Subjective Pt was laying in bed upon arrival. She agrees to a therapy eval. Appearance Pt was left lying in bed with all needs within reach. Mental Status/Objective Patient Orientation: Person, Place, Time, Situation Attachments: IV Current Glasses/Contacts: Yes Hearing Aids: No Dentures/Partials: No Hand Dominance: Right Upper Extremity ROM WNL Upper Extremity Strength 5/5 at shoulders WNL: student strength ADL-Treatment Upper Body Dressing (QC): 6 (per pt and pt's son) Lower Body Dressing (QC): 6 (per pt and pt's son) On/Off Footwear (QC): 6 (per pt and pt's son) Pt and pt's son reports no issues with any self-care tasks. She stated her only barrier is her abdominal pain and the continuation of healing her knee. She reported that she will be starting PT for her knee next week. Sit<>stand: independent. Pt took a few steps to HOB with independence. Pt and pt's son believe she does not need any further skilled OT services. At this time, pt will be d/c. Education OT Patient Education: Correct positioning, Energy conservation, Progress toward Goal/Update tx plan, Reviewed precautions, Rehab process Teaching Recipient: Patient Teaching Methods: Discussion Response to Teaching: Verbalize Understanding, Return Demonstration OT Painter Tumbling Barrel Goals Snf Goals 1=Demonstrate adherence to instructed precautions during ADL tasks. 2=Patient will verbalize/demonstrate understanding of assistive devices/modifications for ADL. 3=Patient will improve strength/tolerance for activity to enable patient to perform ADL's. OT Education/Plan Problem List/Assessment Assessment: No Skilled OT Needs ID'd Discharge Recommendations Plan/Recommendations: Discontinue OT Therapy Discharge Recommendati: Home & Family Treatment Plan/Plan of Care Treatment,Training & Education: Yes Patient would benefit from OT for education, treatment and training to promote i ndependence in ADL's, mobility, safety and/or upper extremity function for ADL's. Plan of Care: ADL Retraining, Functional Mobility Treatment Duration: Apr 06, 2022 Frequency: 1 time per week Estimated Hrs Per Day: .25 hour per day Agreement: Yes Rehab Potential: Good Time/GCodes Start Time: 09:56 Stop Time: 10:05 Total Time Billed (hr/min): 9 Billed Treatment Time 1 visit Tami Costa OT Apr 06, 2022 10:29
--- NOTE | 2022-04-06 11:20 | Progress Note-Pre Operative ---
Pre-Operative Progress Note Date H&P Reviewed: Apr 06, 2022 Time H&P Reviewed: 11:20 History & Physical: H&P Reviewed, Patient Examed, No changes noted Pre-Operative Diagnosis: Acute calculous cholecystitis MIGUEL FRANKEL APRN Apr 06, 2022 11:20
[2022-04-06] MEDS ORDERED: GABA300C PO ×2 (12:35)
[2022-04-06] MEDS ORDERED: OXYC5TAB PO ×2 (12:36)
[2022-04-06] MEDS ORDERED: AMLO2.5T4 PO ×2 (12:37)
[2022-04-06] MEDS ORDERED: CHOL100048 PO ×2 (12:37)
[2022-04-06] MEDS ORDERED: MULT-1021 PO ×2 (12:38)
[2022-04-06] MEDS ORDERED: ACET-2267 PO ×2 (12:39)
[2022-04-06] MEDS ORDERED: MAGN250T13 PO ×2 (12:42)
[2022-04-06] MEDS ORDERED: [UNRECOGNIZED DRUG - OTHER] PO ×2 (12:42)
[2022-04-06] MEDS ORDERED: METAMUCIL GUMMIES PO ×2 (12:44)
[2022-04-06] MEDS ORDERED: COLL1CAP PO ×2 (12:46)
[2022-04-06] MEDS ORDERED: BUP/EPI 0.5% 1:200,000 (MARCAINE) 10ML VIAL IJ ONE ×2 (13:20→13:22)
[2022-04-06] MEDS ORDERED: fentaNYL INJ 100 MCG/2 ML AMP ONE (16:10)
[2022-04-06] MEDS: LORazepam INJ 2 MG/ML (ATIVAN) VIAL IVP PRN ×2 (16:32→22:26)
[2022-04-06] MEDS ORDERED: ROCURONIUM 10 MG/ML 5 ML SYRINGE IV ONE (17:22)
[2022-04-06] MEDS ORDERED: SEVOFLURANE (ULTANE) 15 ML INHAL SOLN ONE ×2 (17:22→18:12)
[2022-04-06] MEDS ORDERED: LIDOCAINE PF 2% 5 ML (XYLOCAINE) VIAL ONE (17:22)
[2022-04-06] MEDS ORDERED: ONDANSETRON 4 MG/2 ML (SDV) Z0FRAN ONE ×2 (17:22→17:58)
[2022-04-06] MEDS ORDERED: morphine INJ 10 MG/ML 1ML (SYR OR VIAL) ONE (17:58)
--- NOTE | 2022-04-06 18:12 | Progress Note-Post Operative ---
Post-Operative Progess Note Surgeon (s)/Regional Tanker Truck Driver (s) Surgeon KAYY GOLDBERG MD Regional Tanker Truck Driver: guillaume chu CORPORATE SECRETARY Pre-Operative Diagnosis Acute calculous cholecystitis Post-Operative Diagnosis same Procedure & Operative Findings Date of Procedure 04/06/22 Procedure Performed/Findings laparoscopic cholecystectomy Anesthesia Type get Estimated Blood Loss Estimated blood loss (mL): minimal Specimens/Packing Specimens Removed gallbladder KAYY GOLDBERG MD Apr 06, 2022 18:12
[2022-04-06] MEDS ORDERED: NEOSTIGMINE 3 MG/3 ML VIAL ONE (18:17)
[2022-04-06] MEDS ORDERED: proPOfol 200 MG/20 ML (DIPRIVAN) VIAL IV ONE (18:17)
[2022-04-06] MEDS ORDERED: GLYCOPYRROLATE 0.2 MG/ML (ROBINUL) 2 ML VIAL ONE (18:17)
--- NOTE | 2022-04-06 18:31 | Anesthesia-General Post-Op ---
General Patient Condition Mental Status/LOC: Same as Preop Cardiovascular: Satisfactory Nausea/Vomiting: Absent Respiratory: Satisfactory Pain: Controlled Complications: Absent Post Op Complications Complications None Follow Up Care/Instructions Patient Instructions None needed. Anesthesia/Patient Condition Patient Condition Patient is doing well, no complaints, stable vital signs, no apparent adverse anesthesia problems. No complications reported per nursing. EDSON RODAS CRNA Apr 06, 2022 18:31
[2022-04-06] MEDS ORDERED: ONDANSETRON 4 MG/2 ML (SDV) Z0FRAN IVP PRN (18:45)
[2022-04-06] MEDS ORDERED: morphine INJ 10 MG/ML 1ML (SYR OR VIAL) IVP ONE (18:45)
[2022-04-06] MEDS: GABAPENTIN 100 MG (NEURONTIN) CAP PO SCH (20:50)
[2022-04-07 00:26] VITALS: BP 117/56
[2022-04-07 03:59] VITALS: BP 139/66
--- NOTE | 2022-04-07 04:32 | OPERATIVE REPORT ---
DATE OF SERVICE: 04/06/2022 ATTENDING PRIMARY CARE PHYSICIAN: Dr. Destinee Aguayo. POSTOPERATIVE DIAGNOSIS: Acute calculous cholecystitis. POSTOPERATIVE DIAGNOSIS: Acute calculous cholecystitis. PROCEDURE: Laparoscopic cholecystectomy. SURGEON: Kayy Goldberg MD. SHIFT LEADER: Sundeep Salinas APRN. ANESTHESIA: General endotracheal. ESTIMATED BLOOD LOSS: Minimal. FINDINGS: Inflamed gallbladder with gallbladder wall thickening, pericholecystic fluids as well as one large solitary stone. DISPOSITION: The patient tolerated the procedure well. INDICATIONS: The patient is an 81-year-old female, who presented to the Emergency Department with right upper abdominal quadrant pain that started the day previous. She states that the pain was severe and would not remit. She states that she went out to eat, which was [place] food and after eating a meal, she developed the pain. She had reported some nausea; however, no vomiting. She stated that her bowel movements up to that point have been normal. Upon further questioning, she also states that she has had some milder symptoms in the past few years on an intermittent basis; however, he felt that this was acid indigestion. She is also status post right total knee arthroplasty approximately one month ago and was on ibuprofen; however, has discontinued that medication a few weeks ago. She also was seen by her gas roller operator for hypertension, before the surgery and was cleared for surgery. DESCRIPTION OF PROCEDURE: The patient was brought to the operating room, laid supine on the table. After adequate IV pain and sedative medications and general endotracheal intubation, the abdomen was prepped and draped in standard surgical fashion. A 0.5% Marcaine with epinephrine was used to anesthetize the overlying skin in the left upper abdominal quadrant and a 0 silk suture was applied to the medial aspect incision for retraction. The Veress needle inserted with low opening pressure of 0 mmHg and the abdomen was then insufflated to 15 mmHg pressure. The Veress needle removed and a 5 mm XL trocar placed followed by a 5 mm 45-degree angle laparoscope visualizing the peritoneal cavity. A 4-quadrant abdominal exploration was performed. There was an inflamed gallbladder, which was significantly distended, thick walled and hard. The remainder of the liver, omentum, stomach, small bowel appeared normal. Under direct visualization, we then proceeded to place a supraumbilical 10 mm port after the skin and peritoneal lining were anesthetized using 0.5% Marcaine with epinephrine and a transverse skin incision made using 15 blade. In a similar manner, a right upper abdominal quadrant 5 mm port was placed. The gallbladder was then decompressed with a laparoscopic needle connected to suction. The patient was then placed in reverse Trendelenburg position as well as plane right side up, left side down. The fundus of the gallbladder was then retracted anteriorly and superiorly. The hepatoduodenal ligament was then dissected using blunt dissection as well as electrocautery on the hook instrument as well as a [place] dissector. The entire critical view of safety was identified including the triangle of Calot as well as the cystic duct and artery as only two structures going into the gallbladder as well as the cystic plate behind the proximal gallbladder. A timeout was then taken and the cystic duct and artery were then clipped proximally and distally and cut with EndoShears. The gallbladder was then dissected off the liver bed using cautery on hook instrument with visualization of good hemostasis as well as no leaking ducts of Luschka. The gallbladder was removed through the 10 mm port site using an EndoCatch bag. The fascia and peritoneal lining to the 10 mm port site were then closed under direct visualization using a Benjie-Divya device and an 0 Vicryl suture. The abdomen was then desufflated and remaining ports removed. All skin incisions were closed using 4-0 Monocryl running subcuticular sutures. Wounds were then cleaned and covered with Dermabond. The patient tolerated the procedure well. We will start IV normal pain medication as well as a clear liquid diet and advance as tolerated. When she is tolerating a diet, has adequate pain control and is ambulating well, we will discharge her home where she will be instructed to do no heavy lifting or exertion for the next two weeks. Job ID: [id number] DocumentID: [id number] Dictated Date: 04/06/2022 18:21:09 Decorating Machine Operator Date: 04/07/2022 04:31:51 Dictated By: KAYY GOLDBERG MD
[2022-04-07] MEDS: metroNIDAZOLE 500MG/100ML IVPB 100 ML IV SCH (05:25)
[2022-04-07 06:16] LABS: CALCIUM 9.1 MG/DL (8.5-10.1); CREATININE SERUM 1.05 MG/DL (0.60-1.30); POTASSIUM 4.1 MMOL/L (3.6-5.0)
[2022-04-07 07:40] VITALS: BP 151/65
[2022-04-07] MEDS: NS IV 1000 ML 1,000 ML IV SCH (08:14)
[2022-04-07] MEDS: amLODIPine 2.5MG (NORVASC) TAB PO SCH (08:14)
[2022-04-07] MEDS: CIPROFLOXACIN IV 400MG/200ML 200 ML IV SCH (08:14)
[2022-04-07] MEDS: lisINopril 10 MG (PRINIVIL) TABLET PO SCH (08:14)
--- NOTE | 2022-04-07 09:33 | Physical Therapy Daily Note ---
PT Daily Note-Current Subjective Pt laying Supine in bed upon arrival. Daughter present and pt agrees to PT. Pt reports stiffness in B knees and soreness in Abdomen from surgery. Pain Location Body Site: Abdomen Pain Description: Ache Comment: Reports but doesn't rate Section J - Health Conditions 1. Rarely or not at all 2. Occasionally 3. Frequently 4. Almost constantly 8. Unable to answer Pain Effect on Sleep: 1 Pain Interference with Therapy: 2 Pain Interference w/Day-to-Day: 1 Mental Status Patient Orientation: Person, Place, Time, Situation Attachments: IV Transfers SCALE: Activities may be completed with or without assistive devices. 6-Gxmgilyuxl-ocmfsoo completes the activity by him/herself with no assistance from a helper. 5-Set-up or Clean-up Assistance-helper sets up or cleans up; patient completes activity. [place] assists only prior to or following the activity. 4-Supervision or Touching Assistance-helper provides verbal cues and/or touching/steadying and/or contact guard assistance as patient completes activity. Assistance may be provided throughout the activity or intermittently. 3-Partial/Moderate Assistance-helper does LESS THAN HALF the effort. [place] lifts, holds or supports trunk or limbs, but provides less than half the effort. 2-Substantial/Maximal Assistance-helper does MORE THAN HALF the effort. [place] lifts or holds trunk or limbs and provides more than half the effort. 2-Vrknoveqe-arvuir does ALL the effort. Patient does none of the effort to complete the activity. Or, the assistance of 2 or more helpers is required for the patient to complete the activity. If activity was not attempted, code reason: 7-Patient Refused. 9-Not Applicable-not attempted and the patient did not perform the activity before the current illness, exacerbation or injury. 10-Not Attempted due to Environmental Limitations-(lack of equipment, weather restraints, etc.). 88-Not Attempted due to Medical Conditions or Safety Concerns. Sit to Lying (QC): 5 Lying to Sitting/Side of Bed(Q: 4 Sit to Stand (QC): 5 Weight Bearing Right Lower Extremity: Right Full Weight Bearing Left Lower Extremity: Left Full Weight Bearing Gait Training Does the Patient Walk?: Yes Distance: 100' x2 Walk 10 feet (QC): 4 Walk 50 ft with 2 Turns(QC): 4 Walk 150 ft (QC): 4 Gait Persons Needed: 1 Pt uses IV pole which she used in yesterday's tx. Since having Abdominal surgery yesterday, pt is a little more unsteady so LITERARY AGENT is CGA with ambulation. Wheelchair Training Does the Pt Use a Wheelchair?: No Exercises Supine Ex: Ankle pumps, Quad Set, Glut sets, Heel Slides, Straight leg raise, Hip abd/add Supine Reps: 15 Treatments Pt completes Supine Ex so as to maintain strength and prevent stiffness from laying in bed. Pt is encouraged to change positional to prevent stiffness and pressure sores. TF to standing and amb. in hallway before returning to room to rest. All needs met, call light in hand. Assessment Current Status: Fair Progress Sore abdominally, stiff from laying in bed. See gait section for amb. Encouraged Ex and amb. as well as changing positions. PT Mason Tender Restoration Labor Goals Senior Living Goals PT Mason Tender Restoration Labor Goals Time Frame: Apr 13, 2022 Roll Left & Right (QC): 6 Sit to Lying (QC): 6 Lying-Sitting on Side/Bed(QC): 6 Sit to Stand (QC): 6 Chair/Rcy-hu-Tlrff Xfer(QC): 6 Toilet Transfer (QC): 6 Does the Patient Walk: Yes Walk 10 feet (QC): 6 Walk 50ft with 2 Turns (QC): 6 Walk 150 ft (QC): 6 Walking 10ft on Uneven Surface: 6 1 Step (curb) (QC): 6 4 Steps (QC): 6 Picking up an Object (QC): 6 Does the Pt use WC or Scooter?: No PT Plan Problem List Problem List: Activity Tolerance, Functional Strength, Gait Treatment/Plan Treatment Plan: Continue Plan of Care Treatment Plan: Bed Mobility, Education, Functional Activity Deann, Functional Strength, Gait, Safety, Transfers Treatment Duration: Apr 13, 2022 Frequency: 6 times per week Estimated Hrs Per Day: .25 hour per day Patient and/or Family Agrees t: Yes Safety Risks/Education Patient Education: Gait Training, Transfer Techniques, Correct Positioning Teaching Recipient: Patient, Family Teaching Methods: Demonstration, Discussion Response to Teaching: Verbalize Understanding, Return Demonstration Time Time In: 827 Time Out: 905 Total Billed Treatment Time: 38 Total Billed Treatment 1, EX x2 (25m) & GT (13m) TIMMY WEBER LITERARY AGENT Apr 07, 2022 09:33
[2022-04-07] MEDS ORDERED: CIPR500T5 PO ×2 (09:56)
[2022-04-07] MEDS ORDERED: METR-145 PO ×2 (09:56)
--- NOTE | 2022-04-07 09:58 | Discharge Inst-Simple/Standard ---
Discharge Inst-Standard Reconcile Patient Problems Problems Reviewed?: Yes Discharge Medications New, Converted or Re-Newed RX: Transmitted to Pharmacy Patient Instructions/Follow Up Plan of Care/Instructions/FU: 1 WK FOLLOW UP [facility] Activity as Tolerated: Yes Discharge Diet: Other Diet (BLAND/LOW FAT DIET X 1 WEEK THEN ADVANCE TOLERATED) Return to The Hospital For: ANY CONCERN FOR ABDOMINAL PAIN, NAUSEA, DIARRHEA THAT IS NOT CONTROLLABLE, OR OTHER LIFETHREATENING ILLNESS OR INJURY Medication List: Active Scripts Active Ciprofloxacin HCl 500 Mg Tablet 500 Mg PO BID Metronidazole 500 Mg Tablet 500 Mg PO TID Reported Collagen 1500 Plus C Capsule (Collagen/Biotin/Ascorbic Acid) 500 Mg-800 Mcg-50 Mg Capsule 1 Each PO DAILY [Metamucil Gummies] 3 Each PO BID Magnesium (Magnesium Oxide) 250 Mg Tablet 250 Mg PO DAILY [Colestoff Complete] 2 Ea PO DAILY Tylenol Extra Strength (Acetaminophen) 500 Mg Tablet 1,000 Mg PO BID PRN Centrum Silver Women Tablet (Multivits-Min/Iron/FA/Lutein) 8 Mg Iron-400 Mcg-300 Mcg Tablet 1 Each PO DAILY Vitamin D3 (Cholecalciferol (Vitamin D3)) 25 Mcg (1000 Unit) Capsule 25 Mcg PO DAILY Amlodipine Besylate 2.5 Mg Tablet 2.5 Mg PO DAILY Oxycodone HCl 5 Mg Tablet 5 Mg PO Q4H PRN FILLED 03-31-2022 #40/7 DAY SUPPLY Neurontin (Gabapentin) 300 Mg Capsule 300 Mg PO HS Lisinopril 10 Mg Tablet 10 Mg PO DAILY Estradiol Tablet (Estradiol) 1 Mg Tablet 1 Mg PO DAILY Vascepa (Icosapent Ethyl) 1 Gram Capsule 2 Gm PO DAILY take 2 (1GM) tabs Lab results: Laboratory Tests Test 04/07/22 05:45 Range/Units Sodium Level 138 135-145 MMOL/L Potassium Level 4.1 3.6-5.0 MMOL/L Chloride Level 110 H 98-107 MMOL/L Carbon Dioxide Level 16 L 21-32 MMOL/L Anion Gap 12 5-14 MMOL/L Blood Urea Nitrogen 20 H 7-18 MG/DL Creatinine 1.05 0.60-1.30 MG/DL Estimat Glomerular Filtration Rate 53 BUN/Creatinine Ratio 19 Glucose Level 119 H 70-105 MG/DL Calcium Level 9.1 8.5-10.1 MG/DL My orders: Orders - ARLINE HOFFMAN MD Code/Resuscitation (04/06/22 14:55) Attending Discharge Inpt/Inobs (04/07/22 09:54) ARLINE HOFFMAN MD Apr 07, 2022 09:58
--- NOTE | 2022-04-07 10:00 | Discharge Summary ---
Diagnosis/Chief Complaint Date of Admission Apr 04, 2022 at 13:07 Date of Discharge Discharge Date: Apr 07, 2022 Discharge Time: 1230 Admission Diagnosis Admission Diagnosis Sepsis Acute calculus cholecystitis Leukocytosis Hypertension OA with recent TKA Discharge Diagnosis Sepsis Acute calculus cholecystitis Leukocytosis Hypertension OA with recent TKA Discharge Summary Procedures: cholecystectomy Consultations dr shaw Discharge Physical Examination Allergies: Coded Allergies: amitriptyline (Verified Allergy, Unknown, 04/04/22) sulfamethoxazole (Verified Allergy, Unknown, 04/04/22) trimethoprim (Verified Allergy, Unknown, 04/04/22) Vitals & I&Os Vital Signs Date Time Temp Pulse Resp B/P (MAP) Pulse Ox O2 Delivery O2 Flow Rate FiO2 04/07/22 07:40 37.8 83 20 151/65 (93) 99 Room Air 04/06/22 18:48 2.00 General Appearance: Alert, Oriented X3, Cooperative, No Acute Distress HEENT: Atraumatic, PERRLA, Mucous Memb Moist/[place] Respiratory: Clear to Auscultation, Normal Air Movement Cardiovascular: Regular Rate, Other (ii/vi maisha) Abdominal: Normal Bowel Sounds, Soft, No Tenderness Extremities: No Clubbing, No Cyanosis, No Edema Neuro: Normal Speech Psych/Mental Status: Mental Status NL, Mood NL Hospital Course Was the Problem List Reviewed?: Yes Sepsis Acute calculus cholecystitis Leukocytosis Hypertension OA with recent TKA Sepsis due to Acute calculus cholecystitis - pt on IV antibiotics - pt is post-op surgical excision of gallbladder and large gallstone - pt to continue with oral cipro and flagyl x 5 days post-hospitalization Leukocytosis Hypertension - resumed home regimen OA with recent TKA - continue with therapy, stretching and monitoring of her recovery. pt on lovenox for dvt prophylaxis. Pending Labs Laboratory Tests 04/07/22 05:45: Sodium Level 138, Potassium Level 4.1, Chloride Level 110, Carbon Dioxide Level 16, Anion Gap 12, Blood Urea Nitrogen 20, Creatinine 1.05, Estimat Glomerular Filtration Rate 53, BUN/Creatinine Ratio 19, Glucose Level 119, Calcium Level 9.1 Discharge Condition at discharge improved Instructions to patient/family Please see electronic discharge instructions given to patient. Discharge Medications Reviewed and agree with Discharge Medication list on patient's Discharge Instruction sheet ARLINE HOFFMAN MD Apr 07, 2022 10:00
[2022-04-07 11:52] VITALS: BP 129/67
[2022-04-07] MEDS ORDERED: FLU QUAD HIGH DOSE 240 MCG/0.7 ML 2022-23 (FLUZONE) IM ONE (12:00)
== END 2022-04-07 13:35 | disposition home or self-care (01) | DRG 417 ==
LOC: EDUNIT# 07:41 → ER 07:43 → 4TH 13:07
PROVIDERS: ADMIT Family Medicine; ATTEND Family Medicine
PROC: 0FT44ZZ Resection of Gallbladder, Percutaneous Endoscopic Approach (ICD-10-PCS; principal; 2022-04-06 16:48)
DX: K80.00 Calculus of gallbladder with acute cholecystitis without obstruction (principal); A41.9 Sepsis, unspecified organism; I10 Essential (primary) hypertension; E78.00 Pure hypercholesterolemia, unspecified; Z96.651 Presence of right artificial knee joint; Z79.82 Long term (current) use of aspirin; Z23 Encounter for immunization
CPT/HCPCS: 36415; 74177; 80048; 80053; 84484; 85007; 85025; 85027; 86141; 87081; 90662

== ENCOUNTER → 2022-04-13 | Outpatient (RCR) | payer MEDICARE, OTHER ==
[~2022-04-13] MED LIST changes: +ACET-2267 PO; +AMLO2.5T4 PO; +CHOL100048 PO; +CIPR500T5 PO; +COLL1CAP PO; +GABA-486 PO; +GABA300C PO; +GABA300S2 PO; +MAGN250T13 PO; +METAMUCIL GUMMIES PO; +METR-145 PO; +MULT-1021 PO; +OXYC5TAB PO; +PRD50T PO; +[UNRECOGNIZED DRUG - OTHER] PO
== END | disposition home or self-care (01) ==
PROVIDERS: ATTEND Orthopaedic Surgery
DX: Z47.1 Aftercare following joint replacement surgery (principal); I10 Essential (primary) hypertension; Z96.651 Presence of right artificial knee joint

== ENCOUNTER 2022-04-17 13:02 | Emergency (ER) | payer MEDICARE, OTHER ==
[~2022-04-17] VITALS: Ht 165.1 cm; Wt 66.7 kg
[~2022-04-17 13:02] MED LIST changes: -PRD50T PO
--- NOTE | 2022-04-17 13:23 | ED General ---
General Chief Complaint: Allergic Reaction Stated Complaint: ALLERGIC REACTION Nursing Triage Note: PT AMB TO ED BY POV WITH C/O RED ITCHY RASH SINCE LAST NIGHT. PT REPORTS SHE FEELS LIKE HER THROAT IS CLOSING UP. DENIES EXPOSURE TO ANY NEW FOODS, DETERGENTS, ETC. Source of Information: Patient Exam Limitations: No Limitations (JOANNE LITTLE MD) History of Present Illness Date Seen by Provider: Apr 17, 2022 Time Seen by Provider: 12:58 Initial Comments Patient is an 81-year-old female who presents to the emergency department with her son chief complaint of red blotchy rash onset yesterday. Today she noticed that her voice was starting to get hoarse and she felt like the back of her throat was "swelling". Patient denies feeling short of breath. She is not nauseous. She did take 2 Benadryl tablets last night. She is on lisinopril. She cannot recall any new medications other than pantoprazole which she started a month ago. No other concerns for new lotions, soaps, perfumes, detergents, medications or foods. She has never had anything like this before. She does describe some brief chest discomfort. None currently. She cannot recall whether or not she had Benadryl this morning. No recent illnesses. Timing/Duration: 12-24 Hours Severity: Mild Associated Systoms: Denies Symptoms (JOANNE LITTLE MD) Allergies and Home Medications Allergies Coded Allergies: amitriptyline (Verified Allergy, Unknown, 04/04/22) sulfamethoxazole (Verified Allergy, Unknown, 04/04/22) trimethoprim (Verified Allergy, Unknown, 04/04/22) Patient Home Medication List Home Medication List Reviewed: Yes (JOANNE LITTLE MD) Acetaminophen (Tylenol Extra Strength) 500 Mg Tablet, 1,000 MG PO BID PRN for PAIN-MILD (1-4), (Reported) Entered as Reported by: KODI MCCLAIN on 04/06/22 1239 Amlodipine Besylate (Amlodipine Besylate) 2.5 Mg Tablet, 2.5 MG PO DAILY, (Reported) Entered as Reported by: KODI MCCLAIN on 04/06/22 1237 Cholecalciferol (Vitamin D3) (Vitamin D3) 25 Mcg (1000 Unit) Capsule, 25 MCG PO DAILY, (Reported) Entered as Reported by: KODI MCCLAIN on 04/06/22 1237 Ciprofloxacin HCl (Ciprofloxacin HCl) 500 Mg Tablet, 500 MG PO BID Prescribed by: ARLINE AGUAYO on 04/07/22 0956 Collagen/Biotin/Ascorbic Acid (Collagen 1500 Plus C Capsule) 500 Mg-800 Mcg-50 Mg Capsule, 1 EACH PO DAILY, (Reported) Entered as Reported by: KODI MCCLAIN on 04/06/22 1246 Estradiol (Estradiol Tablet) 1 Mg Tablet, 1 MG PO DAILY, (Reported) Entered as Reported by: GABRIELA LUCIANO on 08/24/18 1156 Gabapentin (Neurontin) 300 Mg Capsule, 300 MG PO HS, (Reported) Entered as Reported by: KODI MCCLAIN on 04/06/22 1235 Icosapent Ethyl (Vascepa) 1 Gram Capsule, 2 GM PO DAILY, (Reported) Entered as Reported by: GABRIELA LUCIANO on 08/24/18 1156 Lisinopril (Lisinopril) 10 Mg Tablet, 10 MG PO DAILY, (Reported) Entered as Reported by: GABRIELA LUCIANO on 08/24/18 1156 Magnesium Oxide (Magnesium) 250 Mg Tablet, 250 MG PO DAILY, (Reported) Entered as Reported by: KODI MCCLAIN on 04/06/22 1242 Metronidazole (Metronidazole) 500 Mg Tablet, 500 MG PO TID Prescribed by: ARLINE AGUAYO on 04/07/22 0956 Multivits-Min/Iron/FA/Lutein (Centrum Silver Women Tablet) 8 Mg Iron-400 Mcg-300 Mcg Tablet, 1 EACH PO DAILY, (Reported) Entered as Reported by: KODI MCCLAIN on 04/06/22 1238 Oxycodone HCl (Oxycodone HCl) 5 Mg Tablet, 5 MG PO Q4H PRN for PAIN-SEVERE (8- 10), (Reported) Entered as Reported by: KODI MCCLAIN on 04/06/22 1236 [Colestoff Complete] , 2 EA PO DAILY, (Reported) Entered as Reported by: KODI MCCLAIN on 04/06/22 1242 [Metamucil Gummies] , 3 EACH PO BID, (Reported) Entered as Reported by: KODI MCCLAIN on 04/06/22 1244 Review of Systems Review of Systems Constitutional: see HPI EENTM: hoarseness, throat swelling (Review of the mouth swelling) Cardiovascular: chest pain Gastrointestinal: no symptoms reported Genitourinary: no symptoms reported : No Musculoskeletal: no symptoms reported Skin: rash Immunological/Allergic: no symptoms reported (JOANNE LITTLE MD) All Other Systems Reviewed Negative Unless Noted: Yes (JOANNE LITTLE MD) Past Duzdmmn-Rdzhwq-Ciwhkg Hx Patient Social History Tobacco Use?: No Use of E-Cig and/or Vaping dev: No Substance use?: No Alcohol Use?: No Pt feels they are or have been: No (JOANNE LITTLE MD) Immunizations Up To Date Tetanus Booster (TDap): Unknown PED Vaccines UTD: No Influenza Vaccine Up-to-Date: No; Not Current First/Initial COVID19 Vaccinat: UNKNOWN Second COVID19 Vaccination Kobe: UNKNOWN Third COVID19 Vaccination Date: UNKNOWN (JOANNE LITTLE MD) Seasonal Allergies Seasonal Allergies: No (JOANNE LITTLE MD) Past Medical History Surgery/Hospitalization HX: HTN R KNEE, DANIA Surgeries: Yes Hysterectomy Respiratory: No Cardiac: Yes Hypertension Neurological: No Genitourinary: No Gastrointestinal: No Musculoskeletal: Yes Arthritis Endocrine: No HEENT: Yes Cataract Cancer: Yes Skin What Type of Treatment Did You: Surgical Intervention Psychosocial: No Integumentary: No Blood Disorders: No (JOANNE LITTLE MD) Family Medical History Colon cancer Polyps in the colon No Pertinent Family Hx (JOANNE LITTLE MD) Physical Exam Vital Signs Vital Signs - First Documented 04/17/22 13:05 Temp 36.8 Pulse 79 Resp 25 B/P (MAP) 169/76 (107) Pulse Ox 99 O2 Delivery Room Air (AMALIA BLAIR APRN) Vital Signs Capillary Refill : Less Than 3 Seconds (JOANNE LITTLE MD) Height, Weight, BMI Height: 5'7.00" Weight: 155lbs. 0.0oz. [id number]; 24.00 BMI Method: General Appearance: No Apparent Distress, WD/WN Eyes: Bilateral Eye Normal Inspection, Bilateral Eye PERRL, Bilateral Eye EOMI HEENT: PERRL/EOMI, Pharynx Normal, Other (Patient has partial plate in the upper maxilla. No obvious edema, lesions, petechia on the soft palate, swelling in the tonsillar pillars or uvula. No floor of the mouth edema. Her tongue does appear generous but she states she does not feel like it is swollen. Her lips are not edematous.) Neck: Normal Inspection, Supple Respiratory: Lungs Clear, Normal Breath Sounds, No Accessory Muscle Use, No Respiratory Distress Cardiovascular: Regular Rate, Rhythm Gastrointestinal: Soft Extremity: Normal Inspection, Normal Range of Motion, No Pedal Edema Neurologic/Psychiatric: Alert, Oriented x3, No Motor/Sensory Deficits, Normal Mood/Affect Skin: Normal Color, Warm/Dry, Rash (Macular rash noted to the anterior chest wall) (JOANNE LITTLE MD) Progress/Results/Core Measures Suspected Sepsis SIRS Temperature: Pulse: 79 Respiratory Rate: 25 Laboratory Tests 04/17/22 13:56: White Blood Count 8.6 Blood Pressure 169 /76 Mean: 107 Laboratory Tests 04/17/22 13:56: Creatinine 1.40H, Platelet Count 448H (JOANNE LITTLE MD) Results/Orders Lab Results Laboratory Tests Test 04/17/22 13:56 Range/Units White Blood Count 8.6 4.3-11.0 10^3/uL Red Blood Count 4.00 3.80-5.11 10^6/uL Hemoglobin 10.6 L 11.5-16.0 g/dL Hematocrit 34 L 35-52 % Mean Corpuscular Volume 85 80-99 fL Mean Corpuscular Hemoglobin 27 25-34 pg Mean Corpuscular Hemoglobin Concent 31 L 32-36 g/dL Red Cell Distribution Width 15.4 H 10.0-14.5 % Platelet Count 448 H 130-400 10^3/uL Mean Platelet Volume 9.8 9.0-12.2 fL Immature Granulocyte % (Auto) 1 % Neutrophils (%) (Auto) 75 42-75 % Lymphocytes (%) (Auto) 19 12-44 % Monocytes (%) (Auto) 4 0-12 % Eosinophils (%) (Auto) 2 0-10 % Basophils (%) (Auto) 0 0-10 % Neutrophils # (Auto) 6.5 1.8-7.8 10^3/uL Lymphocytes # (Auto) 1.6 1.0-4.0 10^3/uL Monocytes # (Auto) 0.3 0.0-1.0 10^3/uL Eosinophils # (Auto) 0.2 0.0-0.3 10^3/uL Basophils # (Auto) 0.0 0.0-0.1 10^3/uL Immature Granulocyte # (Auto) 0.0 0.0-0.1 10^3/uL Sodium Level 136 135-145 MMOL/L Potassium Level 4.3 3.6-5.0 MMOL/L Chloride Level 106 98-107 MMOL/L Carbon Dioxide Level 22 21-32 MMOL/L Anion Gap 8 5-14 MMOL/L Blood Urea Nitrogen 18 7-18 MG/DL Creatinine 1.40 H 0.60-1.30 MG/DL Estimat Glomerular Filtration Rate 38 BUN/Creatinine Ratio 13 Glucose Level 142 H 70-105 MG/DL Calcium Level 8.9 8.5-10.1 MG/DL Troponin I < 0.028 <0.028 NG/ML (AMALIA BLAIR APRN) Medications Given in ED Current Medications Medications Dose Ordered Sig/Javid Route Start Time Stop Time Status Last Admin Dose Admin Diphenhydramine HCl 25 mg ONCE ONCE IVP 04/17/22 13:30 04/17/22 13:31 DC 04/17/22 13:48 25 MG Methylprednisolone Sodium Succinate 125 mg ONCE ONCE IVP 04/17/22 13:30 04/17/22 13:31 DC 04/17/22 13:48 125 MG (AMALIA BLAIR APRN) Vital Signs/I&O 04/17/22 04/17/22 13:05 16:11 Temp 36.8 36.8 Pulse 79 79 Resp 25 25 B/P (MAP) 169/76 (107) 169/76 Pulse Ox 99 99 O2 Delivery Room Air Room Air (AMALIA BLAIR APRN) Vital Signs/I&O Capillary Refill : Less Than 3 Seconds (JOANNE LITTLE MD) Blood Pressure Mean: 107 Progress Note : Time: 15:53 Progress Note Patient has been monitored for 2 hours and 45 minutes in the emergency department presenting with diffuse red itchy rash as well as scratchy throat and feelings of throat closing. Evaluation today includes an EKG and basic labs as the patient also had some brief chest pain earlier in the day that she states resolved with a large buro EKG is unremarkable for any acute ST segment sher. Her basic laboratory studies are all within normal limits. She was given Solu- Medrol Benadryl and Pepcid with improvement in her symptoms. We will send her home with Benadryl for the next 3 to 5 days as well as Pepcid and prednisone. She is instructed to follow-up with her primary doctor. Return precautions provided she verbalized understanding, all questions are sought and answered. Patient is improved at discharge. (JOANNE LITTLE MD) ECG Initial ECG Impression Date: Apr 17, 2022 Initial ECG Impression Time: 13:32 Initial ECG Rate: 71 Initial ECG Rhythm: Normal Sinus Initial ECG Intervals: Normal Initial ECG Impression: Normal Comment No ST segment elevation or depression, no ectopy (JOANNE LITTLE MD) Departure Impression Primary Impression: Allergic reaction Qualified Codes: T78.40XA - Allergy, unspecified, initial encounter Disposition: HOME, SELF-CARE Condition: Improved Departure-Patient Inst. Decision time for Depature: 15:55 (JOANNE LITTLE MD) Referrals: ARLINE AGUAYO MD (PCP/Family) Primary Care Physician Patient Instructions: Allergic Reaction ED Add. Discharge Instructions: I would like for you to take the Benadryl 1 tablet every 6 hours for itching and rash. Please take Pepcid 20 mg nightly. This works in combination with the Benadryl to help decrease the redness, hives/swelling. Prednisone 50 mg for 5 days, take once daily. Return to the emergency room for reevaluation if your symptoms recur, worsen or you have new, concerning symptoms. Please follow-up with Dr. Aguayo next week. Scripts Prednisone (Prednisone) 50 Mg Tab 50 MG PO DAILY for 5 Days, #5 TAB Prov: AMALIA BLAIR APRN 04/17/22 Copy Copies To 1: ARLINE AGUAYO MD, KATHRYN M MD Apr 17, 2022 13:22 AMALIA BLAIR APRN Apr 17, 2022 18:33
[2022-04-17] MEDS ORDERED: diphenhydrAMINE 50 MG/ML INJ (BENADRYL) IVP ONE (13:30)
[2022-04-17] MEDS ORDERED: methylPREDNISolone 125 MG (Solu-MEDROL) VIAL IVP ONE (13:30)
[2022-04-17] MEDS ORDERED: FAMOTIDINE 20MG/2ML IV (PEPCID) ONE (13:47)
[2022-04-17 14:04] LABS: BASOPHILS % (AUTO) 0 % (0-10); EOSINOPHILS # (AUTO) 0.2 10^3/uL (0.0-0.3); EOSINOPHILS % (AUTO) 2 % (0-10); HEMATOCRIT 34 % (35-52); HEMOGLOBIN 10.6 g/dL (11.5-16.0); LYMPHOCYTES # (AUTO) 1.6 10^3/uL (1.0-4.0); LYMPHOCYTES % (AUTO) 19 % (12-44); MEAN CORPUSCULAR HEMOGLOBIN 27 pg (25-34); MEAN CORPUSCULAR HGB CONC 31 g/dL (32-36); MEAN CORPUSCULAR VOLUME 85 fL (80-99); MEAN PLATELET VOLUME 9.8 fL (9.0-12.2); MONOCYTES # (AUTO) 0.3 10^3/uL (0.0-1.0); MONOCYTES % (AUTO) 4 % (0-12); NEUTROPHILS # (AUTO) 6.5 10^3/uL (1.8-7.8); NEUTROPHILS % (AUTO) 75 % (42-75); PLATELET COUNT 448 10^3/uL (130-400); WHITE BLOOD COUNT 8.6 10^3/uL (4.3-11.0)
[2022-04-17 14:24] LABS: CHLORIDE 106 MMOL/L (98-107); POTASSIUM 4.3 MMOL/L (3.6-5.0); SODIUM 136 MMOL/L (135-145)
[2022-04-17 14:25] LABS: CALCIUM 8.9 MG/DL (8.5-10.1)
[2022-04-17 14:26] LABS: GLUCOSE 142 MG/DL (70-105)
[2022-04-17 14:27] LABS: CARBON DIOXIDE 22 MMOL/L (21-32)
[2022-04-17 14:30] LABS: GFR ESTIMATED 38
[2022-04-17 14:31] LABS: BUN/CREATININE RATIO 13
[2022-04-17 16:11] VITALS: BP 169/76
[2022-04-17] MEDS ORDERED: PRD50T PO (18:32)
[2022-04-18] MEDS ORDERED: FAMOTIDINE 20MG/2ML IV (PEPCID) IVP SCH (09:00)
== END 2022-04-17 16:11 | disposition home or self-care (01) ==
LOC: EDUNIT# 13:02 → ER 13:03
DX: R09.89 Other specified symptoms and signs involving the circulatory and respiratory systems (principal); R21 Rash and other nonspecific skin eruption; T78.40XA Allergy, unspecified, initial encounter
CPT/HCPCS: 36415; 80048; 84484; 85025; 93005

== ENCOUNTER 2022-04-17 20:37 | Emergency (ER) | payer MEDICARE, OTHER ==
[~2022-04-17] VITALS: Ht 165.1 cm; Wt 66.7 kg
[~2022-04-17 20:37] MED LIST changes: +PRD50T PO
[2022-04-17 20:40] VITALS: BP 151/70
--- NOTE | 2022-04-17 21:08 | ED General ---
General Chief Complaint: Allergic Reaction Stated Complaint: LIPS SWELLING / ALLERGIC REACTION History of Present Illness Date Seen by Provider: Apr 17, 2022 Time Seen by Provider: 21:00 Initial Comments Patient presents to the emergency department for swelling that started to left lip a few hours ago. States that she was seen here earlier today and treated for allergic reaction. Was given prescription for Prednisone that she will start tomorrow AM. Took one Benadryl 25mg at home with mild improvement of symptoms. Denies chest pain, shortness of breath or throat tightness. Modifying Factors: improves with Medication Associated Systoms: No Chest Pain, No Cough (ELYSIA BLAIR APRN) Allergies and Home Medications Allergies Coded Allergies: amitriptyline (Verified Allergy, Unknown, 04/04/22) sulfamethoxazole (Verified Allergy, Unknown, 04/04/22) trimethoprim (Verified Allergy, Unknown, 04/04/22) Patient Home Medication List Home Medication List Reviewed: Yes (ELYSIA BLAIR APRN) Acetaminophen (Tylenol Extra Strength) 500 Mg Tablet, 1,000 MG PO BID PRN for PAIN-MILD (1-4), (Reported) Entered as Reported by: KODI MCCLAIN on 04/06/22 1239 Amlodipine Besylate (Amlodipine Besylate) 2.5 Mg Tablet, 2.5 MG PO DAILY, (Reported) Entered as Reported by: KODI MCCLAIN on 04/06/22 1237 Cholecalciferol (Vitamin D3) (Vitamin D3) 25 Mcg (1000 Unit) Capsule, 25 MCG PO DAILY, (Reported) Entered as Reported by: KODI MCCLAIN on 04/06/22 1237 Ciprofloxacin HCl (Ciprofloxacin HCl) 500 Mg Tablet, 500 MG PO BID Prescribed by: ARLINE HOFFMAN on 04/07/22 0956 Collagen/Biotin/Ascorbic Acid (Collagen 1500 Plus C Capsule) 500 Mg-800 Mcg-50 Mg Capsule, 1 EACH PO DAILY, (Reported) Entered as Reported by: KODI MCCLAIN on 04/06/22 1246 Estradiol (Estradiol Tablet) 1 Mg Tablet, 1 MG PO DAILY, (Reported) Entered as Reported by: GABRIELA LUCIANO on 08/24/18 1156 Gabapentin (Neurontin) 300 Mg Capsule, 300 MG PO HS, (Reported) Entered as Reported by: KODI MCCLAIN on 04/06/22 1235 Icosapent Ethyl (Vascepa) 1 Gram Capsule, 2 GM PO DAILY, (Reported) Entered as Reported by: GABRIELA LUCIANO on 08/24/18 1156 Lisinopril (Lisinopril) 10 Mg Tablet, 10 MG PO DAILY, (Reported) Entered as Reported by: GABRIELA LUCIANO on 08/24/18 1156 Magnesium Oxide (Magnesium) 250 Mg Tablet, 250 MG PO DAILY, (Reported) Entered as Reported by: KODI MCCLAIN on 04/06/22 1242 Metronidazole (Metronidazole) 500 Mg Tablet, 500 MG PO TID Prescribed by: ARLINE HOFFMAN on 04/07/22 0956 Multivits-Min/Iron/FA/Lutein (Centrum Silver Women Tablet) 8 Mg Iron-400 Mcg-300 Mcg Tablet, 1 EACH PO DAILY, (Reported) Entered as Reported by: KODI MCCLAIN on 04/06/22 1238 Oxycodone HCl (Oxycodone HCl) 5 Mg Tablet, 5 MG PO Q4H PRN for PAIN-SEVERE (8- 10), (Reported) Entered as Reported by: KODI MCCLAIN on 04/06/22 1236 Prednisone (Prednisone) 50 Mg Tab, 50 MG PO DAILY Prescribed by: Elysia Blair on 04/17/22 1832 [Colestoff Complete] , 2 EA PO DAILY, (Reported) Entered as Reported by: KODI MCCLAIN on 04/06/22 1242 [Metamucil Gummies] , 3 EACH PO BID, (Reported) Entered as Reported by: KODI MCCLAIN on 04/06/22 1244 Review of Systems Review of Systems Constitutional: no symptoms reported EENTM: mouth swelling (left upper and lower lips); No throat swelling Respiratory: no symptoms reported Cardiovascular: no symptoms reported Skin: no symptoms reported (ELYSIA BLAIR APRN) All Other Systems Reviewed Negative Unless Noted: Yes (ELYSIA BLAIR APRN) Past Uugfotw-Vfwwtb-Xgcsbb Hx Patient Social History Tobacco Use?: No Use of E-Cig and/or Vaping dev: No Substance use?: No Alcohol Use?: No Pt feels they are or have been: No (ELYSIA BLAIR APRN) Immunizations Up To Date Tetanus Booster (TDap): Unknown PED Vaccines UTD: No Influenza Vaccine Up-to-Date: Yes; Up-to-Date First/Initial COVID19 Vaccinat: 2019 Second COVID19 Vaccination Kobe: UNKNOWN Third COVID19 Vaccination Date: UNKNOWN (ELYSIA BLAIR APRN) Seasonal Allergies Seasonal Allergies: No (ELYSIA BLAIR APRN) Past Medical History Surgery/Hospitalization HX: HTN R KNEE, DANIA Surgeries: Yes Hysterectomy Respiratory: No Cardiac: Yes Hypertension Neurological: No Genitourinary: No Gastrointestinal: No Musculoskeletal: Yes Arthritis Endocrine: No HEENT: Yes Cataract Cancer: Yes Skin What Type of Treatment Did You: Surgical Intervention Psychosocial: No Integumentary: No Blood Disorders: No (ELYSIA BLAIR APRN) Family Medical History Reviewed Nursing Family Hx (ELYSIA BLAIR APRN) Colon cancer Polyps in the colon No Pertinent Family Hx (ELYSIA BLAIR APRN) Physical Exam Vital Signs Vital Signs - First Documented 04/17/22 20:40 Temp 37.0 Pulse 77 Resp 18 B/P (MAP) 151/70 (97) Pulse Ox 97 O2 Delivery Room Air (TYRA LIU DO) Vital Signs Capillary Refill : Less Than 3 Seconds (ELYSIA BLAIR APRN) Height, Weight, BMI Height: 5'7.00" Weight: 155lbs. 0.0oz. 70.887616gh; 24.00 BMI Method: General Appearance: No Apparent Distress Eyes: Bilateral Eye Normal Inspection HEENT: PERRL/EOMI, Moist Mucous Membranes, Other (left sided upper and lower lip swelling, no tongue swelling, no posterior pharynx swelling, speaks in complete sentences.) Neck: Full Range of Motion, Normal Inspection, Non Tender, Supple Respiratory: Chest Non Tender, Lungs Clear, Normal Breath Sounds, No Accessory Muscle Use Cardiovascular: Regular Rate, Rhythm Gastrointestinal: Normal Bowel Sounds Neurologic/Psychiatric: Alert, Oriented x3 Skin: Normal Color, Warm/Dry (ELYSIA BLAIR APRN) Progress/Results/Core Measures Suspected Sepsis SIRS Temperature: Pulse: 77 Respiratory Rate: 18 Blood Pressure 151 /70 Mean: 97 (ELYSIA BLAIR E MJ) Results/Orders My Orders Orders - ALEXATYRA Teresa DO Ed Iv/Invasive Line Start (04/17/22 20:59) Monitor-Rhythm Ecg Trace Only (04/17/22 20:59) (TYRA LIU DO) Vital Signs/I&O 04/17/22 04/17/22 20:40 20:52 Temp 37.0 Pulse 77 Resp 18 B/P (MAP) 151/70 (97) Pulse Ox 97 O2 Delivery Room Air Room Air (TYRA LIU DO) Vital Signs/I&O Capillary Refill : Less Than 3 Seconds (ELYSIA BLAIR APRN) Blood Pressure Mean: 97 Progress Note : Progress Note Patient presents with left sided lip swelling. Symptoms are better per her report then they were this morning. Already has prednisone at home to start taking tomorrow. Instructed to stop taking the Lisinopril that she is taking. Reasons to return to the ER were discussed with patient in addition. She was in no acute distress while she was here in the department. (ELYSIA BLAIR APRN) Departure Impression Primary Impression: Angioedema Qualified Codes: T78.3XXA - Angioneurotic edema, initial encounter Disposition: HOME, SELF-CARE Condition: Stable Departure-Patient Inst. Decision time for Depature: 21:13 (ELYSIA BLAIR APRN) Referrals: ARLINE HOFFMAN MD (PCP/Family) Primary Care Physician Patient Instructions: Angioedema Add. Discharge Instructions: 1. Stop the Lisinopril that you were prescribed. 2. Follow up with PCP Wednesday. 3. Continue other medications as directed. 4. Return here if worse or concerns. All discharge instructions reviewed with patient and/or family. Voiced under standing. ATTENDING PHYSICIAN NOTE: I WAS PHYSICALLY PRESENT ER PHYSICIAN, BUT I WAS NOT INVOLVED IN ANY DECISION MAKING OR ANY CARE OF THIS PATIENT, AND I AM NOT COLLABORATING PHYSICIAN. (TYRA LIU DO) ELYSIA BLAIR APRN Apr 17, 2022 21:08 TYRA LIU DO Apr 19, 2022 10:57
[2022-04-17] MEDS ORDERED: diphenhydrAMINE 25 MG TAB (BENADRYL) PO ONE (21:15)
== END 2022-04-17 21:22 | disposition home or self-care (01) ==
LOC: EDUNIT# 20:37 → ER 20:38
DX: T78.3XXA Angioneurotic edema, initial encounter (principal)
CPT/HCPCS: 99283

== ENCOUNTER → 2022-05-13 | Outpatient (RCR) | payer MEDICARE, OTHER ==
[~2022-05-13] MED LIST changes: +CEPH500T PO; +PHEN-640 PO
== END | disposition home or self-care (01) ==
PROVIDERS: ATTEND Orthopaedic Surgery
DX: Z47.1 Aftercare following joint replacement surgery (principal); Z96.651 Presence of right artificial knee joint

== ENCOUNTER 2022-05-17 17:57 | Emergency (ER) | payer MEDICARE, OTHER ==
[~2022-05-17] VITALS: Ht 165 cm; Wt 65.0 kg
[~2022-05-17 17:57] MED LIST changes: -CEPH500T PO; -PHEN-640 PO
[2022-05-17 18:16] LABS: BILIRUBIN,URINE NEGATIVE (NEGATIVE); CLARITY,URINE TURBID; COLOR,URINE YELLOW; GLUCOSE, URINE (UA) NEGATIVE (NEGATIVE); KETONES,URINE NEGATIVE (NEGATIVE); LEUKOCYTE ESTERASE ,URINE 3+ (NEGATIVE); NITRITE,URINE NEGATIVE (NEGATIVE); PROTEIN,URINE NEGATIVE (NEGATIVE)
[2022-05-17 18:24] LABS: BACTERIA,URINE MODERATE /HPF; SQUAMOUS EPITHELIAL CELL,UR 0-2 /HPF; WBC,URINE 25-50 /HPF
--- NOTE | 2022-05-17 18:49 | ED Abdominal Pain ---
General Chief Complaint: - Reproductive Stated Complaint: UTI SYMPTOMS Nursing Triage Note: ARRIVED VIA AMB WITH COMLAINTS OF UTI SX. (CELESTE IBANEZ) History of Present Illness Date Seen by Provider: May 17, 2022 Time Seen by Provider: 18:20 Initial Comments 81 yo female with no pertinent past medical hx here for possible UTI x1 day. Pt notes dysuria, burning upon urination, increased urgency, and decreased urine output. Pt has associated lower abdominal discomfort, chills, nausea, decreased appetite. Pt denies any CP, SOB, vomiting, change in bowel movement, or fever. Pr denies any hx of UTIs. No other complaints. (CELESTE IBANEZ) Allergies and Home Medications Allergies Coded Allergies: amitriptyline (Verified Allergy, Unknown, 04/04/22) sulfamethoxazole (Verified Allergy, Unknown, 04/04/22) trimethoprim (Verified Allergy, Unknown, 04/04/22) Patient Home Medication List Home Medication List Reviewed: Yes (CELESTE IBANEZ) Acetaminophen (Tylenol Extra Strength) 500 Mg Tablet, 1,000 MG PO BID PRN for PAIN-MILD (1-4), (Reported) Entered as Reported by: KODI MCCLAIN on 04/06/22 1239 Amlodipine Besylate (Amlodipine Besylate) 2.5 Mg Tablet, 2.5 MG PO DAILY, (R eported) Entered as Reported by: KODI MCCLAIN on 04/06/22 1237 Cephalexin (Cephalexin) 500 Mg Tablet, 500 MG PO TID Prescribed by: KYARA PUENTE on 05/17/22 194 Cholecalciferol (Vitamin D3) (Vitamin D3) 25 Mcg (1000 Unit) Capsule, 25 MCG PO DAILY, (Reported) Entered as Reported by: KODI MCCLAIN on 04/06/22 1237 Ciprofloxacin HCl (Ciprofloxacin HCl) 500 Mg Tablet, 500 MG PO BID Prescribed by: ARLINE HOFFMAN on 04/07/22 0956 Collagen/Biotin/Ascorbic Acid (Collagen 1500 Plus C Capsule) 500 Mg-800 Mcg-50 Mg Capsule, 1 EACH PO DAILY, (Reported) Entered as Reported by: KODI MCCLAIN on 04/06/22 1246 Estradiol (Estradiol Tablet) 1 Mg Tablet, 1 MG PO DAILY, (Reported) Entered as Reported by: GABRIELA LUCIANO on 08/24/18 1156 Gabapentin (Neurontin) 300 Mg Capsule, 300 MG PO HS, (Reported) Entered as Reported by: KODI MCCLAIN on 04/06/22 1235 Icosapent Ethyl (Vascepa) 1 Gram Capsule, 2 GM PO DAILY, (Reported) Entered as Reported by: GABRIELA LUCIANO on 08/24/18 1156 Lisinopril (Lisinopril) 10 Mg Tablet, 10 MG PO DAILY, (Reported) Entered as Reported by: GABRIELA LUCIANO on 08/24/18 1156 Magnesium Oxide (Magnesium) 250 Mg Tablet, 250 MG PO DAILY, (Reported) Entered as Reported by: KODI MCCLAIN on 04/06/22 1242 Metronidazole (Metronidazole) 500 Mg Tablet, 500 MG PO TID Prescribed by: ARLINE HOFFMAN on 04/07/22 0956 Multivits-Min/Iron/FA/Lutein (Centrum Silver Women Tablet) 8 Mg Iron-400 Mcg-300 Mcg Tablet, 1 EACH PO DAILY, (Reported) Entered as Reported by: KODI MCCLAIN on 04/06/22 1238 Oxycodone HCl (Oxycodone HCl) 5 Mg Tablet, 5 MG PO Q4H PRN for PAIN-SEVERE (8- 10), (Reported) Entered as Reported by: KODI MCCLAIN on 04/06/22 1236 Phenazopyridine HCl (Pyridium) 200 Mg Tablet, 1 TAB PO TID PRN for PAIN-MODERATE (5-7) Prescribed by: KYARA PUENTE on 05/17/22 194 Prednisone (Prednisone) 50 Mg Tab, 50 MG PO DAILY Prescribed by: Elysia Milligan on 04/17/22 183 [Colestoff Complete] , 2 EA PO DAILY, (Reported) Entered as Reported by: KODI MCCLAIN on 04/06/22 1242 [Metamucil Gummies] , 3 EACH PO BID, (Reported) Entered as Reported by: KODI MCCLAIN on 04/06/22 1244 Review of Systems Review of Systems Constitutional: chills; No fever EENTM: No Symptoms Reported Respiratory: No Symptoms Reported; Denies Cough, Denies Shortness of Air Cardiovascular: Denies Chest Pain, Denies Lightheadedness, Denies Palpitations Gastrointestinal: Denies Abdomen Distended; Abdominal Pain (RLQ and LLQ); Denies Blood Streaked Stools, Denies Constipated, Denies Diarrhea; Nausea, Poor Appetite; Denies Vomiting Genitourinary: Burning, Frequency, Pain, Urgency Musculoskeletal: no symptoms reported Skin: no symptoms reported Psychiatric/Neurological: No Symptoms Reported Endocrine: No Symptoms Reported Hematologic/Lymphatic: No Symptoms Reported (CELESTE IBANEZ) Past Avtiiem-Luqzqs-Ntavke Hx Patient Social History Tobacco Use?: No Substance use?: No Alcohol Use?: No (CELESTE IBANEZ) Immunizations Up To Date Tetanus Booster (TDap): Unknown PED Vaccines UTD: No First/Initial COVID19 Vaccinat: 2019 Second COVID19 Vaccination Kobe: UNKNOWN Third COVID19 Vaccination Date: UNKNOWN 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[employer]: [employer] (CELESTE IBANEZ) Seasonal Allergies Seasonal Allergies: No (CELESTE IBANEZ) Past Medical History Surgery/Hospitalization HX: HTN R KNEE, DANIA Surgeries: Yes Gallbladder, Hysterectomy, Orthopedic (right knee) Respiratory: No Cardiac: Yes Hypertension Neurological: No Genitourinary: No Gastrointestinal: No Musculoskeletal: Yes Arthritis Endocrine: No HEENT: Yes Cataract Cancer: Yes Skin What Type of Treatment Did You: Surgical Intervention Psychosocial: No Integumentary: No Blood Disorders: No (CELESTE IBANEZ) Family Medical History Colon cancer Polyps in the colon No Pertinent Family Hx (CELESTE IBANEZ) Physical Exam Vital Signs Vital Signs - First Documented 05/17/22 18:00 Temp 37.2 Pulse 83 Resp 16 B/P (MAP) 183/83 (116) Pulse Ox 96 O2 Delivery Room Air (KYARA WELLS MD) Vital Signs Capillary Refill : Less Than 3 Seconds (CELESTE IBANEZ) Height/Weight/BMI Height: 5'7.00" Weight: 155lbs. 0.0oz. [id number]; 23.00 BMI Method: General Appearance: WD/WN, no apparent distress HEENT: PERRL/EOMI, normal ENT inspection, TMs normal, pharynx normal Neck: non-tender, full range of motion, supple, normal inspection Respiratory: chest non-tender, lungs clear, normal breath sounds, no respiratory distress, no accessory muscle use Cardiovascular: regular rate, rhythm, no edema, no gallop, no JVD Gastrointestinal: normal bowel sounds, non tender, soft, no organomegaly, no pulsatile mass Extremities: normal range of motion, non-tender, normal inspection, no pedal edema, no calf tenderness Back: normal inspection, no CVA tenderness, no vertebral tenderness Pelvic: normal external exam, normal adnexa, no cerv. motion tender Neurologic/Psychiatric: cutter helper II-XII nml as tested, no motor/sensory deficits, alert, normal mood/affect, oriented x 3 Skin: normal color, warm/dry Lymphatic: no adenopathy (CELESTE IBANEZ) Focused Exam Respiratory: Chest Non Tender, Lungs Clear, Normal Breath Sounds, No Accessory Muscle Use, No Respiratory Distress Cardiovascular: Regular Rate, Rhythm, No Edema, No Gallop, No JVD, No Murmur, Normal Peripheral Pulses (CELESTE IBANEZ) Progress/Results/Core Measures Results/Orders Lab Results Laboratory Tests Test 05/17/22 18:08 Range/Units Urine Color YELLOW Urine Clarity TURBID Urine pH 6.0 5-9 Urine Specific [place] 1.010 L 1.016-1.022 Urine Protein NEGATIVE NEGATIVE Urine Glucose (UA) NEGATIVE NEGATIVE Urine Ketones NEGATIVE NEGATIVE Urine Nitrite NEGATIVE NEGATIVE Urine Bilirubin NEGATIVE NEGATIVE Urine Urobilinogen 0.2 < = 1.0 MG/DL Urine Leukocyte Esterase 3+ H NEGATIVE Urine RBC (Auto) 1+ H NEGATIVE Urine RBC NONE /HPF Urine WBC 25-50 H /HPF Urine Squamous Epithelial Cells 0-2 /HPF Urine Renal Epithelial Cells NONE /HPF Urine Crystals NONE /LPF Urine Bacteria MODERATE H /HPF Urine Casts NONE /LPF Urine Mucus NEGATIVE /LPF Urine Culture Indicated YES (KYARA WELLS MD) My Orders Orders - KYARA WELLS MD Ua Culture If Indicated (05/17/22 18:06) Urine Culture (05/17/22 18:08) Cephalexin Capsule (Keflex Capsule) (05/17/22 19:45) Phenazopyridine Tablet (Pyridium Tablet) (05/17/22 19:45) Phenazopyridine Tablet (Pyridium Tablet) (05/17/22 19:44) (KYARA WELLS MD) Medications Given in ED Current Medications Medications Dose Ordered Sig/Javid Route Start Time Stop Time Status Last Admin Dose Admin Cephalexin HCl 500 mg ONCE ONCE PO 05/17/22 19:45 05/17/22 19:46 DC 05/17/22 20:06 500 MG (KYARA WELLS MD) Vital Signs/I&O 05/17/22 05/17/22 18:00 20:10 Temp 37.2 Pulse 83 Resp 16 B/P (MAP) 183/83 (116) 170/75 Pulse Ox 96 O2 Delivery Room Air (KYARA WELLS MD) Blood Pressure Mean: 116 Departure Impression Primary Impression: Urinary tract infection Qualified Codes: N39.0 - Urinary tract infection, site not specified Additional Impression: Dysuria Disposition: HOME, SELF-CARE Condition: Stable Departure-Patient Inst. Decision time for Depature: 19:37 (KYARA WELLS MD) Referrals: ARLINE HOFFMAN MD (PCP/Family) Primary Care Physician Patient Instructions: Urinary Tract Infection, Adult ED Add. Discharge Instructions: Drink plenty of clear liquids to stay well-hydrated and to help flush out your bladder infection. Complete the antibiotic as prescribed. Check with your primary care provider midweek to review urine culture results. This will help determine if the antibiotic you are taking is the best antibiotic for your bladder infection. You may use Pyridium as prescribed to help with bladder pain. Please be aware this medication will make your urine a reddish or oranges color. Do not be a larmed by that appearance if you take Pyridium. Return to care if you have worsening symptoms despite following these instructio ns. All discharge instructions reviewed with patient and/or family. Voiced understanding. Scripts Phenazopyridine HCl (Pyridium) 200 Mg Tablet 1 TAB PO TID PRN for PAIN-MODERATE (5-7), #10 TAB Prov: KYARA WELLS MD 05/17/22 Cephalexin (Cephalexin) 500 Mg Tablet 500 MG PO TID, #20 TAB Prov: KYARA WELLS MD 05/17/22 Medical Student Attestation and Attending Note: I have personally interviewed and examined this patient along with Celeste Ibanez MS3. I have reviewed student documentation including history, physical, and assessments. I agree with the documentation except where otherwise noted. UA demonstrated pyuria. Patient was treated with Pyridium and Keflex. See discharge instructions for further discussion. Exam: General: Alert, oriented, no acute distress, well developed HEENT: Normocephalic and atraumatic Heart: Regular rate and rhythm without murmur Lungs: Clear to auscultation bilaterally with normal effort Abdomen: Soft, nontender, nondistended, normal bowel sounds Neuropsych: Alert, oriented, no focal deficits Skin: Warm and dry without rashes (KYARA WELLS MD) Copy Copies To 1: ARLINE HOFFMAN MD, ANISHA T May 17, 2022 18:49 KYARA WELLS MD May 17, 2022 19:40
[2022-05-17] MEDS ORDERED: PHEN-640 PO (19:40)
[2022-05-17] MEDS ORDERED: CEPH500T PO (19:40)
[2022-05-17] MEDS ORDERED: PHENAZOPYRIDINE 100 MG (PYRIDIUM) TABLET PO STA (19:44)
[2022-05-17] MEDS ORDERED: PHENAZOPYRIDINE 100 MG (PYRIDIUM) TABLET PO ONE (19:45)
[2022-05-17] MEDS ORDERED: CEPHALEXIN 250 MG (KEFLEX) CAP PO ONE (19:45)
[2022-05-17 20:10] VITALS: BP 170/75
== END 2022-05-17 20:11 | disposition home or self-care (01) ==
LOC: EDUNIT# 17:57 → ER 18:00
DX: N39.0 Urinary tract infection, site not specified (principal)
CPT/HCPCS: 81000; 87088; 99283

== ENCOUNTER 2022-06-01 16:15 | Outpatient (RCR) | payer MEDICARE, OTHER ==
[~2022-06-01 16:15] MED LIST changes: +CEPH500T PO; +PHEN-640 PO
== END 2022-06-13 | disposition home or self-care (01) ==
PROVIDERS: ATTEND Orthopaedic Surgery
DX: Z47.1 Aftercare following joint replacement surgery (principal); Z96.651 Presence of right artificial knee joint